=== PATIENT | male | born 1985 | race Caucasian/White ===

== ENCOUNTER 2019-10-21 15:00 | Outpatient (CLI) | payer OTHER, SELFPAY ==
[2019-10-21 16:28] LABS: 25 Hydroxy Vitamin D 16 ng/mL (30-100)
[2019-10-27 19:06] LABS: Vit D 1,25 (Oh)2, Total 54 pg/mL (18-72); Vit D2 1,25 (Oh)2 <8 pg/mL; Vit D3 1,25 (Oh)2 54 pg/mL
== END 2019-10-21 15:01 | disposition home or self-care (01) ==
LOC: LAB 15:04
PROVIDERS: Family Provider Family Medicine; Visit Provider Internal Medicine Critical Care Medicine
DX: D86.9 Sarcoidosis, unspecified (principal)
CPT/HCPCS: 82306; 82652

== ENCOUNTER 2019-11-24 09:51 | Outpatient (CLI) | payer OTHER, SELFPAY ==
--- NOTE | 2019-11-24 13:16 | PFTS_ITS ---
Date of Study:11/24/2019 Date of Dictation: MECHANICS: Forced vital capacity (FVC) is reduced. Forced expiratory volume in one second (FEV1) is reduced. FEV1/FVC is reduced. FLOW VOLUME LOOP: Reduced flow at all lung volumes. LUNG VOLUMES: Total lung capacity (TLC) and residual volume (RV) are not measured. DIFFUSING CAPACITY FOR CARBON MONOXIDE: Not measured. INTERPRETATION: The pulmonary function tests are consistent with severe airflow obstruction. There is possibly a component of restrictive lung disease as well given the reduced forced vital capacity. The gas exchange was not measured. MTDD
== END 2019-11-24 09:52 | disposition home or self-care (01) ==
LOC: RT 09:52
PROVIDERS: Family Provider Family Medicine; PCP Family Medicine; Visit Provider Internal Medicine Critical Care Medicine
DX: D86.9 Sarcoidosis, unspecified (principal)
CPT/HCPCS: 94010

== ENCOUNTER → 2019-11-29 13:49 | Outpatient (BNVA) | payer OTHER, SELFPAY | PROVIDERS: Family Provider Family Medicine; PCP Family Medicine; Referring Provider Family Medicine; Visit Provider Family Medicine | DX: R73.9 Hyperglycemia, unspecified (principal); T38.0X5A Adverse effect of glucocorticoids and synthetic analogues, initial encounter; K29.70 Gastritis, unspecified, without bleeding; K21.9 Gastro-esophageal reflux disease without esophagitis; H57.9 Unspecified disorder of eye and adnexa; D86.0 Sarcoidosis of lung | CPT/HCPCS: 36416; 82962 ==

== ENCOUNTER → 2019-11-30 08:38 | Outpatient (BNVA) | payer OTHER, SELFPAY | PROVIDERS: Family Provider Family Medicine; PCP Family Medicine; Visit Provider Family Medicine | DX: R73.9 Hyperglycemia, unspecified (principal); T38.0X5A Adverse effect of glucocorticoids and synthetic analogues, initial encounter | CPT/HCPCS: 80053; 82150; 83036 ==

== ENCOUNTER 2020-03-31 10:55 | Outpatient (CLI) | payer OTHER, SELFPAY ==
--- NOTE | 2020-03-31 12:37 | PFTS_ITS ---
Date of Study:03/31/20 Date of Dictation: MECHANICS: Forced vital capacity (FVC) is reduced. Forced expiratory volume in one second (FEV1) is reduced. FEV1/FVC is reduced. FLOW VOLUME LOOP: Narrow. LUNG VOLUMES: Not performed DIFFUSING CAPACITY FOR CARBON MONOXIDE: Normal INTERPRETATION: The pulmonary function tests are consistent with severe obstruction. A component of restriction cannot be ruled out without lung volumes. Gas exchange (DLCO) is normal. MTDD
== END 2020-03-31 10:56 | disposition home or self-care (01) ==
LOC: RT 10:55
PROVIDERS: Family Provider Family Medicine; PCP Family Medicine; Visit Provider Internal Medicine Critical Care Medicine
DX: D86.9 Sarcoidosis, unspecified (principal)
CPT/HCPCS: 94010; 94729

== ENCOUNTER → 2020-04-11 08:29 | Outpatient (BNVA) | payer OTHER, SELFPAY | PROVIDERS: Family Provider Family Medicine; PCP Family Medicine; Visit Provider Family Medicine | DX: R73.9 Hyperglycemia, unspecified (principal); T38.0X5A Adverse effect of glucocorticoids and synthetic analogues, initial encounter | CPT/HCPCS: 83036 ==

== ENCOUNTER 2020-05-17 07:57 | Outpatient (CLI) | payer OTHER, SELFPAY ==
[2020-05-17 09:30] LABS: Hepatitis B Core AB, Total Non-Reactive (Nonreactive); Hepatitis B Surface AB 3.5 (0-8.5); Hepatitis B Surface Antigen Non-Reactive (Nonreactive); Hepatitis C Virus Antibody Non-Reactive (Nonreactive)
== END 2020-05-17 07:58 | disposition home or self-care (01) ==
LOC: LAB 07:59
PROVIDERS: PCP Family Medicine; Visit Provider Internal Medicine Critical Care Medicine
DX: D86.0 Sarcoidosis of lung (principal)
CPT/HCPCS: 86705; 86706; 86803; 87340

== ENCOUNTER 2020-06-07 08:29 | Outpatient (CLI) | payer OTHER, SELFPAY ==
[2020-06-07 09:09] LABS: Hematocrit 46.2 % (42.0-52.0); Hemoglobin 14.4 g/dL (11.7-16.6); Mean Corpuscular HGB Conc 31.2 g/dL (30.0-36.0); Mean Corpuscular Hemoglobin 25.7 pg (28.0-34.0); Mean Corpuscular Volume 82.4 fL (80-94); Mean Platelet Volume 8.9 fL (7.4-10.4); Platelet Count 213 10^3/cmm (130-400); Red Blood Count 5.61 10^6/uL (4.1-5.3); Red Cell Distribution Width 14.4 % (12.1-15.1); White Blood Count 5.8 10^3/uL (4.0-10.0)
[2020-06-07 09:44] LABS: Absolute Eosinophils 0.2 10^3/cmm (0.0-0.7); Absolute Neutrophil 4.2 10^3/cmm (1.4-6.5); Absolute Segmented Neutrophil 3.6 10/cmm (1.6-7.1); Band Neutrophils Absolute 0.6 10^3/cmm (0.0-1.2); Eosinophils 4 %; Lymphocytes 20 %; Monocytes Absolute 0.2 10^3/cmm (0.1-0.6); Platelet Estimate Normal (Normal); Segmented Neutrophils 62 %; Total Cells Counted 100 (0-100)
[2020-06-07 09:46] LABS: Alanine Aminotransferase 12 U/L (0-41); Albumin Level 4.3 g/dL (3.5-5.2); Alkaline Phosphatase 109 IU/L (40-130); Anion Gap 15.7 (5-19); Aspartate Amino Transferase 17 U/L (0-40); Blood Urea Nitrogen 9 mg/dL (6-20); Calcium 9.2 mg/dL (8.5-10.5); Carbon Dioxide 25 mmol/L (22-29); Chloride 101 mmol/L (98-107); Globulin 3.2 g/dL (1.3-4.6); Glomerular Filtration Rate 68.5 mL/min (90-130); Glucose 245 mg/dL (65-115); Osmolality Calculated 290 mOsm/kg (285-295); Potassium 3.7 mmol/L (3.5-5.1); Sodium 138 mmol/L (136-145); Total Bilirubin 0.4 mg/dL (0.15-1.2); Total Protein 7.5 g/dL (6.6-8.7)
== END 2020-06-07 08:30 | disposition home or self-care (01) ==
LOC: LAB 08:30
PROVIDERS: PCP Family Medicine; Visit Provider Internal Medicine Critical Care Medicine
DX: D86.0 Sarcoidosis of lung (principal)
CPT/HCPCS: 80053; 85007; 85027

== ENCOUNTER 2020-08-09 15:54 | Outpatient (CLI) | payer OTHER, SELFPAY ==
--- NOTE | 2020-08-09 15:59 | XR_ITS ---
WS: [id number] Left shoulder, 2 views, 08/09/2020 Clinical Data: shoulder pain Comparison: None. Findings: No fractures or dislocations are seen. The AC joint is normal. The adjacent left clavicle, left scapu la and ribs are normal. The soft tissues are unremarkable. XR/XR shoulder LT min 2V* [id number] Impression: Negative left shoulder.
== END 2020-08-09 15:55 | disposition home or self-care (01) ==
PROVIDERS: PCP Family Medicine; Visit Provider Internal Medicine Critical Care Medicine
DX: M25.512 Pain in left shoulder (principal)
CPT/HCPCS: 73030

== ENCOUNTER 2020-08-25 12:56 | Outpatient (CLI) | payer OTHER, SELFPAY ==
[2020-08-25 13:28] LABS: Basophils % 0.4 %; Eosinophils # 0.2 10^3/uL (0.0-0.8); Eosinophils % 4.8 %; Hematocrit 44.4 % (42.0-52.0); Hemoglobin 14.4 g/dL (11.7-16.6); Lymphocytes # 0.8 10^3/uL (0.8-4.8); Lymphocytes % 17.5 %; Mean Corpuscular HGB Conc 32.4 g/dL (30.0-36.0); Mean Corpuscular Hemoglobin 25.4 pg (28.0-34.0); Mean Corpuscular Volume 78.2 fL (80-94); Mean Platelet Volume 8.7 fL (7.4-10.4); Monocytes # 0.4 10^3/uL (0.2-0.9); Monocytes % 8.7 %; Neutrophils % 68.6 %; Nucleated Red Blood Cells % 0 %; Platelet Count 232 10^3/cmm (130-400); Red Blood Count 5.68 10^6/uL (4.1-5.3); Red Cell Distribution Width 13.5 % (12.1-15.1); White Blood Count 4.8 10^3/uL (4.0-10.0)
[2020-08-25 13:55] LABS: Alanine Aminotransferase 14 U/L (0-41); Albumin Level 4.4 g/dL (3.5-5.2); Alkaline Phosphatase 127 IU/L (40-130); Anion Gap 11.8 (5-19); Aspartate Amino Transferase 20 U/L (0-40); Blood Urea Nitrogen 12 mg/dL (6-20); Calcium 9.4 mg/dL (8.5-10.5); Carbon Dioxide 28 mmol/L (22-29); Chloride 102 mmol/L (98-107); Glomerular Filtration Rate 75.7 mL/min (90-130); Glucose 101 mg/dL (65-115); Osmolality Calculated 286 mOsm/kg (285-295); Potassium 3.8 mmol/L (3.5-5.1); Sodium 138 mmol/L (136-145); Total Bilirubin 0.3 mg/dL (0.15-1.2); Total Protein 7.4 g/dL (6.6-8.7)
== END 2020-08-25 12:57 | disposition home or self-care (01) ==
LOC: LAB 12:58
PROVIDERS: PCP Family Medicine; Visit Provider Internal Medicine Critical Care Medicine
DX: D86.0 Sarcoidosis of lung (principal)
CPT/HCPCS: 36415; 80053; 85025

== ENCOUNTER → 2020-09-07 09:04 | Outpatient (BNVA) | payer OTHER, SELFPAY | PROVIDERS: PCP Family Medicine; Visit Provider Internal Medicine Critical Care Medicine | DX: Z20.828 Contact with and (suspected) exposure to other viral communicable diseases (principal); Z01.812 Encounter for preprocedural laboratory examination | CPT/HCPCS: 87635 ==

== ENCOUNTER 2020-09-14 10:40 | Outpatient (CLI) | payer OTHER, SELFPAY ==
--- NOTE | 2020-09-14 11:23 | PFTS_ITS ---
Date of Study:09/14/20 Date of Dictation: MECHANICS: Forced vital capacity (FVC) is reduced. Forced expiratory volume in one second (FEV1) is reduced. FEV1/FVC is reduced. FLOW VOLUME LOOP: Reduced flow with scooping. LUNG VOLUMES: Not measured DIFFUSING CAPACITY FOR CARBON MONOXIDE: Normal INTERPRETATION: The spirometry is consistent with severe obstruction. A component of restriction cannot be ruled out in the absence of lung volume measurements. Gas exchange (DLCO) is normal. MTDD
--- NOTE | 2020-09-14 11:23 | PFTS_ITS ---
Date of Study:09/14/20 Date of Dictation: MECHANICS: Forced vital capacity (FVC) is . Forced expiratory volume in one second (FEV1) is . FEV1/FVC is . FLOW VOLUME LOOP: . LUNG VOLUMES: Total lung capacity (TLC) is . Residual volume (RV) is . DIFFUSING CAPACITY FOR CARBON MONOXIDE: . INTERPRETATION: The pulmonary function tests are . mechanics and lung volumes. Gas exchange (DLCO) is . MTDD
== END 2020-09-14 10:41 | disposition home or self-care (01) ==
PROVIDERS: PCP Family Medicine; Visit Provider Internal Medicine Critical Care Medicine
DX: D86.0 Sarcoidosis of lung (principal)
CPT/HCPCS: 94010; 94729

== ENCOUNTER → 2020-09-18 10:19 | Outpatient (BNVA) | payer OTHER, SELFPAY | PROVIDERS: PCP Family Medicine; Visit Provider Internal Medicine | DX: K21.9 Gastro-esophageal reflux disease without esophagitis (principal); Z01.818 Encounter for other preprocedural examination | CPT/HCPCS: 87635 ==

== ENCOUNTER 2020-09-22 08:33 | Day surgery (SDC) | payer OTHER, SELFPAY ==
[2020-09-21 13:24] VITALS: BMI 33.0
[2020-09-22 08:43] VITALS: BP 144/68; PULSE 91; RESP 22; TEMP 36.9; O2SAT 97
--- NOTE | 2020-09-22 09:14 | ANES.PREANE2 ---
Pre-Anesthetic Assessment Pre-Anesthetic Assessment: Height/Weight: Height 1.83 m Weight 110.677 kg Temp Pulse Resp BP Pulse Ox 98.5 F 91 22 H 144/68 97 09/22/20 08:43 09/22/20 08:43 09/22/20 08:43 09/22/20 08:43 09/22/20 08:43 Preop Diagnosis: e Proposed Procedure: Operation Date: 09/22/20 09:45 Proposed Procedures p EGD 11315 K21.9(Not Applicable) - Lobo Loya MD Last intake: Intake Last Liquid Date 09/21/20 Last Liquid Time 20:00 Last Solid Date 09/21/20 Last Solid Time 20:00 Social: Social History: Tobacco and No alcohol Comment: quit 2014 Exam: Pre-Anes Outpt Exam: alert, oriented x 3, clear to auscultation bilaterally and regular rate & rhythm Airway: Submandibular: WNL Cervical ROM: WNL MP: 3 Dentition: Full (dentures) History/ROS: No significant history except as noted Pulmonary: Pulmonary: AVENDANO Comments: sarcodosis CV/HEM: CV/HEM: None reported : : None reported Hepatic: Hepatic: None reported GI: GI: GERD Metabolic: Metabolic: None reported Musc/skel: Musc/skel: None reported Neuropsych: Neuropsych: None reported Anesthetic Plan: ASA status: 2 Anesthesia: Anesthesia Evaluation and MAC Risk of > 500 ml blood loss (7ml/kg in children): No PFSH Anesthesia PFSH: Medical History Acute hyperventilation syndrome Bilateral pneumonia Drug-induced hyperglycemia Essential (primary) hypertension GERD (gastroesophageal reflux disease) Polyarthralgia Reactive depression (situational) Sarcoidosis of lung Tobacco abuse counseling Tobacco use Surgical History H/O right knee surgery History of lung biopsy Family History Other Cancer Denies family history of Lung disease Social History Smoking and tobacco status: former smoker Quit status (tobacco): has quit using tobacco Year quit tobacco: 2016 - 3PPD x 19 Years Alcohol intake: never Lives independently: Yes Household members: spouse Marital status: Current occupational status: employed History of recent travel: No Current gender identity: Male Data Anesthesia Cardiac Studies: No Data to Display
--- NOTE | 2020-09-22 09:20 | W.PM.OPSUD ---
Surgery/Procedure H&P Update DATE OF PROCEDURE: September 22, 2020 DATE H&P PERFORMED: 09/12/20 PREOP DIAGNOSIS: e PLANNED PROCEDURE: Operation Date: 09/22/20 09:45 Proposed Procedures p EGD 97843 K21.9(Not Applicable) - Lobo Loya MD
[2020-09-22] MEDS: sodium chloride 0.9% 1,000 ML 30 ML IV (09:23)
[2020-09-22 10:11] VITALS: BP 119/91; PULSE 100; RESP 24; TEMP 36.6; O2SAT 98
[2020-09-22 10:16] VITALS: BP 123/88; PULSE 93; RESP 20; TEMP 36.6; O2SAT 98
[2020-09-22 10:34] VITALS: BP 127/93; PULSE 90; RESP 18; O2SAT 97
--- NOTE | 2020-09-22 10:35 | ANE.PACU2 ---
Inpatient post-anesthesia follow up: Airway intact: Yes Vital signs: Temperature 97.8 F Pulse Rate 90 Respiratory Rate 18 Blood Pressure 127/93 Pulse Oximetry 97 Oxygen Delivery Me thod Room Air Oxygen Flow Rate 3 Fraction of Inspir ed Oxygen Hydration adequate: Yes Nausea and vomiting: No Mental status: Baseline
[2020-09-25 09:26] LABS: H. Pylori / CLO Test Negative
== END 2020-09-22 10:42 | disposition home or self-care (01) ==
PROVIDERS: PCP Family Medicine; Visit Provider Internal Medicine
PROC: 0DJ08ZZ Inspection of Upper Intestinal Tract, Via Natural or Artificial Opening Endoscopic (ICD-10-PCS; CPT 43235; principal; 2020-09-22 09:45)
DX: K21.00 Gastro-esophageal reflux disease with esophagitis, without bleeding (principal); K29.70 Gastritis, unspecified, without bleeding; Z79.52 Long term (current) use of systemic steroids; Z87.891 Personal history of nicotine dependence; I10 Essential (primary) hypertension
CPT/HCPCS: 12345; 43239; 87077; J2704; J7030

== ENCOUNTER 2020-09-22 10:46 | Outpatient (CLI) | payer OTHER, SELFPAY ==
[2020-09-22 11:24] LABS: Basophils % 0.9 %; Eosinophils # 0.2 10^3/uL (0.0-0.8); Eosinophils % 4.6 %; Hematocrit 45.1 % (42.0-52.0); Hemoglobin 14.6 g/dL (11.7-16.6); Lymphocytes # 0.6 10^3/uL (0.8-4.8); Lymphocytes % 12.9 %; Mean Corpuscular HGB Conc 32.4 g/dL (30.0-36.0); Mean Corpuscular Hemoglobin 25.7 pg (28.0-34.0); Mean Corpuscular Volume 79.3 fL (80-94); Mean Platelet Volume 8.5 fL (7.4-10.4); Monocytes # 0.4 10^3/uL (0.2-0.9); Monocytes % 8.5 %; Neutrophils # 3.16 10^3/uL (1.8-7.7); Neutrophils % 72.6 %; Nucleated Red Blood Cells % 0 %; Platelet Count 199 10^3/cmm (130-400); Red Blood Count 5.69 10^6/uL (4.1-5.3); Red Cell Distribution Width 13.7 % (12.1-15.1); White Blood Count 4.4 10^3/uL (4.0-10.0)
== END 2020-09-22 10:47 | disposition home or self-care (01) ==
LOC: LAB 10:47
PROVIDERS: PCP Family Medicine; Visit Provider Internal Medicine Critical Care Medicine
DX: D86.0 Sarcoidosis of lung (principal)
CPT/HCPCS: 36415; 85025

== ENCOUNTER → 2020-11-30 09:47 | Outpatient (BNVA) | payer OTHER, SELFPAY | PROVIDERS: PCP Family Medicine; Visit Provider Internal Medicine Critical Care Medicine | DX: D86.0 Sarcoidosis of lung (principal) | CPT/HCPCS: 87635 ==

== ENCOUNTER 2020-12-05 09:43 | Outpatient (CLI) | payer OTHER, SELFPAY ==
--- NOTE | 2020-12-05 14:01 | PFTS_ITS ---
Date of Study:12/05/20 Date of Dictation: 12/08/2020 MECHANICS: Forced vital capacity (FVC) is reduced 65%. Forced expiratory volume in one second (FEV1) is moderately reduced 51%. FEV1/FVC is reduced. FLOW VOLUME LOOP: Sloping of expiratory limb suggestive of airway obstruction. LUNG VOLUMES: Not measured DIFFUSING CAPACITY FOR CARBON MONOXIDE: Normal 89% . INTERPRETATION: The spirometry suggestive of moderate obstructive ventilatory defect. There is no significant response to bronchodilators. Normal diffusion capacity. MTDD
== END 2020-12-05 09:44 | disposition home or self-care (01) ==
LOC: RT 09:44
PROVIDERS: PCP Family Medicine; Visit Provider Internal Medicine Critical Care Medicine
DX: D86.0 Sarcoidosis of lung (principal)
CPT/HCPCS: 94060; 94729; J7611

== ENCOUNTER 2021-01-03 11:52 | Outpatient (CLI) | payer OTHER, SELFPAY ==
[2021-01-03 12:47] LABS: Basophils % 0.9 %; Eosinophils # 0.1 10^3/uL (0.0-0.8); Eosinophils % 2.7 %; Hematocrit 46.4 % (42.0-52.0); Hemoglobin 15.2 g/dL (11.7-16.6); Lymphocytes # 0.8 10^3/uL (0.8-4.8); Lymphocytes % 17.7 %; Mean Corpuscular HGB Conc 32.8 g/dL (30.0-36.0); Mean Corpuscular Hemoglobin 26.3 pg (28.0-34.0); Mean Corpuscular Volume 80.4 fL (80-94); Mean Platelet Volume 8.9 fL (7.4-10.4); Monocytes # 0.4 10^3/uL (0.2-0.9); Monocytes % 7.7 %; Neutrophils # 3.19 10^3/uL (1.8-7.7); Neutrophils % 70.6 %; Nucleated Red Blood Cells % 0 %; Platelet Count 217 10^3/cmm (130-400); Red Blood Count 5.77 10^6/uL (4.1-5.3); White Blood Count 4.5 10^3/uL (4.0-10.0)
[2021-01-03 13:12] LABS: Alanine Aminotransferase 9 U/L (0-41); Albumin Level 4.4 g/dL (3.5-5.2); Alkaline Phosphatase 113 IU/L (40-130); Anion Gap 13.7 (5-19); Aspartate Amino Transferase 17 U/L (0-40); Blood Urea Nitrogen 9 mg/dL (6-20); Calcium 9.1 mg/dL (8.5-10.5); Carbon Dioxide 28 mmol/L (22-29); Chloride 102 mmol/L (98-107); Globulin 3.4 g/dL (1.3-4.6); Glucose 122 mg/dL (65-115); Osmolality Calculated 290 mOsm/kg (285-295); Potassium 3.7 mmol/L (3.5-5.1); Sodium 140 mmol/L (136-145); Total Bilirubin 0.3 mg/dL (0.15-1.2); Total Protein 7.8 g/dL (6.6-8.7)
== END 2021-01-03 11:53 | disposition home or self-care (01) ==
LOC: LAB 11:53
PROVIDERS: PCP Family Medicine; Visit Provider Internal Medicine Critical Care Medicine
DX: D86.0 Sarcoidosis of lung (principal)
CPT/HCPCS: 80053; 85025

== ENCOUNTER 2021-02-21 10:12 | Emergency (ER) | payer OTHER, SELFPAY ==
[2021-02-21 10:14] VITALS: BP 142/104; PULSE 103; RESP 18; TEMP 36.8; O2SAT 97; BMI 31.1
--- NOTE | 2021-02-21 10:18 | XR_ITS ---
WS: [id number] Left femur and thigh, AP and lateral views, 02/21/2021 Clinical Data: trauma Comparison: None. Findings: No fractures or dislocations are seen. The soft tissues are normal. The visualized knee shows no abno rmalities. The left hip shows no abnormalities. XR/XR femur LT min 2V* [id number] Impression: Negative left femur and thigh.
--- NOTE | 2021-02-21 10:18 | CT_ITS ---
WS: [id number] CT ABDOMEN PELVIS TECHNIQUE: Contrast-enhanced CT of the abdomen and pelvis with coronal and sagittal reformatted image s. CLINICAL INFORMATION: Unspecified abdominal wilber COMPARISON: None. DLP: 1605.[address] scans at [facility] use at least one of these dose optimization techniques: automat ed exposure control; mA and/or kV adjustment per patient size (includes targeted exams where dose is matched to clinical indication); or iterative reconstruction. FINDINGS: Mild diffuse fatty infiltration the liver. Normal spleen. Normal GE junction. Normal caliber abdomina l aorta. Normal pancreas. Normal renal parenchymal enhancement. No hydronephrosis. No free fluid in t he abdomen or pelvis. No abdominal or pelvic lymphadenopathy. Chronic Opacities in the left lower lob e unchanged since the prior CTA February 2018. Normal lumbar spine. CT/CT abdomen pelvis w con* [id number] IMPRESSION: No acute findings in the abdomen or pelvis.
--- NOTE | 2021-02-21 10:24 | CT_ITS ---
WS: [id number] CT THORACIC SPINE TECHNIQUE: Noncontrast CT of the thoracic spine with coronal and sagittal reformatted images. CLINICAL INFORMATION: trauma COMPARISON: None. DLP: 2245.[address] scans at [facility] use at least one of these dose optimization techniques: automat ed exposure control; mA and/or kV adjustment per patient size (includes targeted exams where dose is matched to clinical indication); or iterative reconstruction. FINDINGS: Mild thoracic curve. Mild thoracic kyphosis. A few Schmorl's nodes in the mid thoracic spine. No acut e appearing compression fractures. No high-grade central canal stenosis. Adrenal glands are normal. Small esophageal hiatal hernia. Chronic lung opacities similar to 2018. CT/CT thoracic spin wo con* [id number] IMPRESSION: 1. Mild thoracic kyphosis. Mild thoracic curve. 2. No acute compression fractures. 3. A few Schmorl's nodes in the mid thoracic spine. 4. No significant central canal stenosis.
[2021-02-21 10:35] LABS: Basophils % 0.6 %; Eosinophils # 0.1 10^3/uL (0.0-0.8); Eosinophils % 1.2 %; Hematocrit 46.6 % (42.0-52.0); Hemoglobin 15.5 g/dL (11.7-16.6); Lymphocytes # 1.1 10^3/uL (0.8-4.8); Lymphocytes % 16.3 %; Mean Corpuscular HGB Conc 33.3 g/dL (30.0-36.0); Mean Corpuscular Hemoglobin 26.5 pg (28.0-34.0); Mean Corpuscular Volume 79.8 fL (80-94); Monocytes # 0.6 10^3/uL (0.2-0.9); Monocytes % 8.2 %; Neutrophils # 4.91 10^3/uL (1.8-7.7); Neutrophils % 73.6 %; Nucleated Red Blood Cells % 0 %; Platelet Count 246 10^3/cmm (130-400); Red Blood Count 5.84 10^6/uL (4.1-5.3); Red Cell Distribution Width 13.8 % (12.1-15.1); White Blood Count 6.7 10^3/uL (4.0-10.0)
--- NOTE | 2021-02-21 10:42 | ED_ITS ---
HPI - Fall General: Chief Complaint: Fall Stated Complaint: FALL/ SWELLING & DEFORMITY TO LEG Time Seen by Provider: 02/21/21 10:15 History of Present Illness: HPI Narrative: 35-year-old male brought in by EMS. Patient brought in following a fall. Patient was walking when he fell to and approximate 5 foot hole. Patient reports that he did not fall the way down but that his back bent backwards it caught him. He complains of pain in his thoracic midline spine, left flank, left posterior hip and left thigh. Patient has some swelling to his left thigh with full range of motion is painful. Patient denies any numbness tingling, bowel or bladder issues. Patient some mild swelling on his mid back. Patient did not want any pain medication while being brought in by EMS. He denies any abdominal pain. Associated symptoms-after fall: Denies abdominal pain, chest pain or headache(s) Review of Systems Const: Denies: fever(s) or chills Eyes: Denies: change in vision ENMT: Denies: throat pain Card: Denies: chest pain or palpitations Resp: Denies: dyspnea or wheezing GI: Denies: abdominal pain, nausea or vomiting : Reports: flank pain Musc: Reports: back pain (Midline thoracic, lumbar, left lumbar region and left posterior pelvis/hip.) and other (Mild swelling left thigh); Denies: deformity Neuro: Denies: headache(s) PFSH ED PFSH: Medical History Acute hyperventilation syndrome Bilateral pneumonia Drug-induced hyperglycemia Essential (primary) hypertension GERD (gastroesophageal reflux disease) Polyarthralgia Reactive depression (situational) Sarcoidosis of lung Tobacco abuse counseling Tobacco use Surgical History H/O right knee surgery History of lung biopsy Family History Other Cancer Denies family history of Lung disease Social History Smoking and tobacco status: former smoker Quit status (tobacco): has quit using tobacco Year quit tobacco: 2016 - 3PPD x 19 Years Smoking risk assessment/counseling performed?: No Alcohol intake: never Desire information about alcohol rehabilitation?: No Counseling given: No Desire information about substance/drug rehabilitation?: No Counseling given: No Lives independently: Yes Household members: spouse Marital status: Current occupational status: employed History of recent travel: No Current gender identity: Male Physical Exam Const: COMMON NORMALS: average body habitus GENERAL APPEARANCE: well kempt HENMT: COMMON NORMALS: normocephalic and atraumatic HEAD & SCALP: normocephalic and atraumatic Neck/C-Spine: COMMON NORMALS: full ROM and supple Psych: APPEARANCE: Yes well kempt Course Vital Signs: Vital signs: Vital Signs Temperature 98.2 F 02/21/21 10:14 Pulse Rate 84 02/21/21 11:55 Respiratory Rate 14 02/21/21 11:55 Blood Pressure 128/98 02/21/21 11:55 Pulse Oximetry 98 02/21/21 11:55 MDM - Fall MDM Narrative: Medical decision making narrative: Patient with no acute findings on x-ray, CT thoracic her CT abdomen pelvis. Patient will likely lumbar and thoracic contusion. Patient reports only a little bit of pain when he does move around. Patient ready to be discharged. He will use Tylenol ibuprofen and topical lidocaine for pain. Lab Data: Labs: Lab Results 02/21/21 02/21/21 02/21/21 Range/Units 10:27 10:27 11:36 WBC 6.7 (4.0-10.0) 10^3/ uL RBC 5.84 H (4.1-5.3) 10^6/u L Hgb 15.5 (11.7-16.6) g/dL Hct 46.6 (42.0-52.0) % MCV 79.8 L (80-94) fL MCH 26.5 L (28.0-34.0) pg MCHC 33.3 (30.0-36.0) g/dL RDW 13.8 (12.1-15.1) % Plt Count 246 (130-400) 10^3/c mm MPV 9.0 (7.4-10.4) fL Neut % (Auto) 73.6 % Lymph % (Auto) 16.3 % [place] % (Auto) 8.2 % Eos % (Auto) 1.2 % Baso % (Auto) 0.6 % Neut # (Auto) 4.91 (1.8-7.7) 10^3/u L Lymph # (Auto) 1.1 (0.8-4.8) 10^3/u L [place] # (Auto) 0.6 (0.2-0.9) 10^3/u L Eos # (Auto) 0.1 (0.0-0.8) 10^3/u L Baso # (Auto) 0.0 (0.0-0.1) 10^3/u L Nucleated RBC % (a uto) 0 % Nucleated RBCs # 0.0 /100WBC Sodium 137 (136-145) mmol/L Potassium 3.9 (3.5-5.1) mmol/L Chloride 99 (98-107) mmol/L Carbon Dioxide 24 (22-29) mmol/L Anion Gap 17.9 (5-19) BUN 10 (6-20) mg/dL Creatinine 1.0 (0.7-1.2) mg/dL GFR Calculation 84.1 L (90-130) mL/min Glucose 131 H (65-115) mg/dL Calculated Osmolal ity 285 (285-295) mOsm/k g Calcium 8.5 (8.5-10.5) mg/dL Total Bilirubin 0.3 (0.15-1.2) mg/dL AST 19 (0-40) U/L ALT 11 (0-41) U/L Alkaline Phosphata se 109 (40-130) IU/L Total Protein 7.7 (6.6-8.7) g/dL Albumin 4.4 (3.5-5.2) g/dL Globulin 3.3 (1.3-4.6) g/dL Urine Color Straw (Yellow) Urine Appearance Clear (CLEAR) Urine pH 8 H (5-7) Ur Specific Gravit y 1.010 (1.005-1.030) Urine Protein Neg (Negative) Urine Glucose (UA) Norm (Normal) Urine Ketones Negative (Negative) Urine Blood Neg (Negative) Urine Nitrate Negative (Negative) Urine Bilirubin Neg (Negative) Prot Sulfosalicyli c Acd Negative (Negative) Urine Urobilinogen Norm (Negative) mg/dL Ur Leukocyte Lacie ase Negative (Negative) Imaging Data^: Xray Ortho: Attestation: I personally reviewed and interpreted this imaging study as follows: My impression: No acute findings Radiologist's impression: Left femur and thigh, AP and lateral views, 02/21/2021 Clinical Data: trauma Comparison: None. Findings: No fractures or dislocations are seen. The soft tissues are normal. The visualized knee shows no abnormalities. The left hip shows no abnormalities. XR/XR femur LT min 2V* [id number] Impression: Negative left femur and thigh. CT Abd/Pel: Attestation: I personally reviewed and interpreted this imaging study as follows: Radiologist's impression: Mild diffuse fatty infiltration the liver. Normal spleen. Normal GE junction. Normal caliber abdominal aorta. Normal pancreas. Normal renal parenchymal enhancement. No hydronephrosis. No free fluid in the abdomen or pelvis. No abdominal or pelvic lymphadenopathy. Chronic Opacities in the left lower lobe unchanged since the prior CTA February 2018. Normal lumbar spine. CT/CT abdomen pelvis w con* [id number] IMPRESSION: No acute findings in the abdomen or pelvis Other CT: Attestation: I personally reviewed and interpreted this imaging study as follows : Radiologist's impression: IMPRESSION: 1. Mild thoracic kyphosis. Mild thoracic curve. 2. No acute compression fractures. 3. A few Schmorl's nodes in the mid thoracic spine. 4. No significant central canal stenosis. Discharge Plan Discharge Patient Disposition: Home Clinical Impression: Contusion Qualifiers: Encounter type: initial encounter Contusion area: lower back Qualified Code(s): S30.0XXA - Contusion of lower back and pelvis, initial encounter Fall Qualifiers: Encounter type: initial encounter Qualified Code(s): W19.XXXA - Unspecified fall, initial encounter Acute lumbar myofascial strain Qualifiers: Encounter type: initial encounter Qualified Code(s): S39.012A - Strain of muscle, fascia and tendon of lower back, initial encounter Contusion of left leg Qualifiers: Encounter type: initial encounter Qualified Code(s): S80.12XA - Contusion of left lower leg, initial encounter Condition: Stable Prescriptions: No Action tacrolimus 0.1 % ointment 1 applic topical BID Qty: 60 RF: 1 diclofenac sodium [Voltaren] 1 % gel 2 gm TOPICAL BID RF: 0 albuterol sulfate [Ventolin HFA] 90 mcg/actuation HFA aerosol inhaler 2 puff INHALATION Q4H PRN (Reason: Shortness Of Breath) RF: 0 prednisone 5 mg tablet 5 mg PO DAILY 60 Days Qty: 60 RF: 3 clobetasol 0.05 % ointment 1 applic topical BID 14 Days Qty: 60 RF: 1 hydrocortisone 2.5 % ointment 1 applic topical BID Qty: 28.35 RF: 2 folic acid 1 mg tablet See Rx Instructions .ROUTE .COMPLEX Qty: 30 RF: 2 Protonix 40 mg tablet,delayed release (DR/EC) 40 mg PO BID Qty: 180 RF: 3 methotrexate sodium 2.5 mg tablet See Rx Instructions .ROUTE .COMPLEX Qty: 36 RF: 0 Discharge Orders: Discharge ED (Routine); Ordered 02/21/21 Ordered By: Jj Ornelas Referrals: Reggie Webb MD [Primary Care Provider] - Discharge Diet: Usual diet Discharge Activity: Increase activity as tolerated Patient Instructions: Low Back Strain (ED), Contusion in Adults (ED), Opioid Safety Activity Restrictions/Additional Instructions: Tylenol or ibuprofen as needed for pain 4% topical lidocaine with menthol as needed for pain Ice to affected area Follow-up with your primary care provider as needed Coding Level of Care Code ED Horse Race Timer for Chg Fwd Exam Expanded Problem Focused
[2021-02-21] MEDS: iohexol 300 mg/mL 100 mL Btl IV (10:51)
[2021-02-21 10:55] LABS: Alanine Aminotransferase 11 U/L (0-41); Albumin Level 4.4 g/dL (3.5-5.2); Alkaline Phosphatase 109 IU/L (40-130); Anion Gap 17.9 (5-19); Aspartate Amino Transferase 19 U/L (0-40); Blood Urea Nitrogen 10 mg/dL (6-20); Calcium 8.5 mg/dL (8.5-10.5); Carbon Dioxide 24 mmol/L (22-29); Chloride 99 mmol/L (98-107); Globulin 3.3 g/dL (1.3-4.6); Glomerular Filtration Rate 84.1 mL/min (90-130); Glucose 131 mg/dL (65-115); Osmolality Calculated 285 mOsm/kg (285-295); Potassium 3.9 mmol/L (3.5-5.1); Sodium 137 mmol/L (136-145); Total Bilirubin 0.3 mg/dL (0.15-1.2); Total Protein 7.7 g/dL (6.6-8.7)
[2021-02-21 11:42] LABS: Add Urine Microscopic? NO; Charge for UA Resulting for Rev
[2021-02-21 11:47] LABS: Bilirubin Urine Neg (Negative); Blood Urine Neg (Negative); Glucose Urine UA Norm (Normal); Ketones Urine Negative (Negative); Leukocyte Esterase Urine Negative (Negative); Nitrate Urine Negative (Negative); Protein Urine Neg (Negative); Sulfosalicylic Acid Urine Negative (Negative); Urine Appearance Clear (CLEAR); Urine Color Straw (Yellow); Urobilinogen Urine Norm (Negative); pH Urine 8 (5-7)
[2021-02-21 11:55] VITALS: BP 128/98; PULSE 84; RESP 14; O2SAT 98
== END 2021-02-21 11:56 | disposition home or self-care (01) ==
PROVIDERS: Emergency Provider Student in an Organized Health Care Education/Training Program; PCP Family Medicine
DX: S30.0XXA Contusion of lower back and pelvis, initial encounter (principal); S39.012A Strain of muscle, fascia and tendon of lower back, initial encounter; S80.12XA Contusion of left lower leg, initial encounter; W19.XXXA Unspecified fall, initial encounter; I10 Essential (primary) hypertension; Z87.891 Personal history of nicotine dependence
CPT/HCPCS: 72128; 73552; 74177; 80053; 81003; 85025; 99283; Q9967

== ENCOUNTER → 2021-06-18 10:39 | Outpatient (BNVA) | payer OTHER, SELFPAY | PROVIDERS: PCP Family Medicine; Visit Provider Internal Medicine Critical Care Medicine | DX: D86.0 Sarcoidosis of lung (principal); Z20.822 Contact with and (suspected) exposure to COVID-19 | CPT/HCPCS: 87635 ==

== ENCOUNTER 2021-06-21 09:59 | Outpatient (CLI) | payer OTHER, SELFPAY ==
--- NOTE | 2021-06-21 10:35 | PFTS_ITS ---
Date of Study:06/21/21 Date of Dictation: 06/22/2021 MECHANICS: Forced vital capacity (FVC) is reduced. Forced expiratory volume in one second (FEV1) is severely reduced. FEV1/FVC is reduced. There is no postbronchodilator study FLOW VOLUME LOOP: Slanting of expiratory limb suggestive of airway obstruction. LUNG VOLUMES: Not measured DIFFUSING CAPACITY FOR CARBON MONOXIDE: Normal . INTERPRETATION: The prebronchodilator spirometry is consistent with severe air flow obstruction. Lung volumes not measured. Gas transfer is kaushik. Correlate clinically. MTDD
== END 2021-06-21 10:00 | disposition home or self-care (01) ==
LOC: RT 10:00
PROVIDERS: PCP Family Medicine; Visit Provider Internal Medicine Critical Care Medicine
DX: D86.0 Sarcoidosis of lung (principal)
CPT/HCPCS: 94010; 94729

== ENCOUNTER → 2021-10-10 10:22 | Outpatient (BNVA) | payer OTHER, SELFPAY | PROVIDERS: PCP Family Medicine; Visit Provider Family Medicine | DX: R73.9 Hyperglycemia, unspecified (principal); T38.0X5A Adverse effect of glucocorticoids and synthetic analogues, initial encounter | CPT/HCPCS: 83036 ==

== ENCOUNTER → 2022-02-20 10:09 | Outpatient (BNVA) | payer OTHER, SELFPAY | PROVIDERS: PCP Family Medicine; Visit Provider Internal Medicine Critical Care Medicine | DX: D86.0 Sarcoidosis of lung (principal); R73.9 Hyperglycemia, unspecified; T38.0X5A Adverse effect of glucocorticoids and synthetic analogues, initial encounter; Z87.891 Personal history of nicotine dependence | CPT/HCPCS: 71046; 80048; 85025 ==

== ENCOUNTER 2022-02-26 07:02 | Outpatient (CLI) | payer OTHER, SELFPAY ==
--- NOTE | 2022-02-26 11:02 | PFTS_ITS ---
Date of Study:02/26/22 Date of Dictation: MECHANICS: Forced vital capacity (FVC) is reduced. Forced expiratory volume in one second (FEV1) is reduced. FEV1/FVC is reduced. FLOW VOLUME LOOP: Reduced flow at all lung volumes with mild scooping LUNG VOLUMES: Total lung capacity (TLC) is reduced. Residual volume (RV) is normal. DIFFUSING CAPACITY FOR CARBON MONOXIDE: Normal. INTERPRETATION: The postbronchodilator spirometry is consistent with moderate obstruction. There is a significant postbronchodilator response. Lung volumes are consistent with mild restrictive lung disease. Gas exchange (DLCO) is normal. MTDD
== END 2022-02-26 07:03 | disposition home or self-care (01) ==
LOC: RT 07:03
PROVIDERS: PCP Family Medicine; Visit Provider Internal Medicine Critical Care Medicine
DX: D86.0 Sarcoidosis of lung (principal)
CPT/HCPCS: 94060; 94726; 94729; J7614

== ENCOUNTER → 2022-04-23 14:12 | Outpatient (BNVA) | payer OTHER, SELFPAY | PROVIDERS: PCP Family Medicine; Visit Provider Internal Medicine | DX: E78.2 Mixed hyperlipidemia (principal); E11.65 Type 2 diabetes mellitus with hyperglycemia | CPT/HCPCS: 80061; 83036 ==

== ENCOUNTER 2022-06-04 15:33 | Emergency (ER) | payer OTHER, SELFPAY ==
[2022-06-04 15:35] VITALS: BP 141/90; PULSE 85; RESP 20; TEMP 36.4; O2SAT 100; BMI 29.4
--- NOTE | 2022-06-04 15:45 | XR_ITS ---
WS: [id number] Exam: XR chest 1V portable [id number] Date/Time of Exam: 06/04/2022 3:45 PM Reason For Exam: chest pain Comparison 02/20/2022. Patchy fibrotic appearing opacities are noted throughout both lungs and demonstrate no change since p rior study. Heart size is normal. Prominent right hilum unchanged. No pneumothorax or pleural effusio n. No acute pneumonic infiltrates are suspected. XR/XR chest 1V portable [id number] IMPRESSION: 1. Extensive chronic pulmonary parenchymal changes in both lungs. 2. No acute pulmonary consolidation. 3. Prominent right pulmonary hilum unchanged.
--- NOTE | 2022-06-04 15:58 | ECG_ITS ---
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 Measurements Intervals [place] Rate: 100 P: 54 [place]: 152 QRS: 29 QRSD: 85 T: 45 QT: 315 QTc: 407 Interpretive Statements SINUS TACHYCARDIA Compared to ECG 07/21/2018 11:31:06 Sinus rhythm no longer present Electronically Signed On 06-04-2022 16:25:16 CDT by Jose Rocha M.D. [email or web address] [email or web address] sm[facility] [email or web address] [id number]
[2022-06-04 16:24] LABS: Basophils % 0.5 %; Eosinophils # 0.1 10^3/uL (0.0-0.8); Eosinophils % 1.7 %; Hematocrit 48.7 % (42.0-52.0); Hemoglobin 16.1 g/dL (11.7-16.6); Lymphocytes # 0.5 10^3/uL (0.8-4.8); Lymphocytes % 8.5 %; Mean Corpuscular HGB Conc 33.1 g/dL (30.0-36.0); Mean Corpuscular Hemoglobin 25.6 pg (28.0-34.0); Mean Corpuscular Volume 77.4 fl (80-94); Mean Platelet Volume 8.7 fL (7.4-10.4); Monocytes # 0.4 10^3/uL (0.2-0.9); Monocytes % 6.8 %; Neutrophils # 4.73 10^3/uL (1.8-7.7); Neutrophils % 82.2 %; Nucleated Red Blood Cells % 0 %; Platelet Count 216 10^3/cmm (130-400); Red Blood Count 6.29 10^6/uL (4.1-5.3); Red Cell Distribution Width 13.2 % (12.1-15.1); White Blood Count 5.8 10^3/uL (4.0-10.0)
[2022-06-04 16:57] LABS: Troponin(5th) Baseline 7 ng/L (0-15)
[2022-06-04 17:01] LABS: Alanine Aminotransferase 11 U/L (0-41); Albumin Level 4.3 g/dL (3.5-5.2); Alkaline Phosphatase 125 U/L (40-130); Aspartate Amino Transferase 17 U/L (0-40); Blood Urea Nitrogen 9 mg/dL (6-20); Carbon Dioxide 20 mmol/L (22-29); Chloride 103 mmol/L (98-107); Globulin 3.2 g/dL (1.3-4.6); Glomerular Filtration Rate 94.4 mL/min (90-130); Glucose 148 mg/dL (65-115); Osmolality Calculated 285 mOsm/kg (285-295); Sodium 137 mmol/L (136-145); Total Bilirubin 0.4 mg/dL (0.15-1.2); Total Protein 7.5 g/dL (6.6-8.7)
[2022-06-04 17:02] LABS: Anion Gap 17.7 (5-19); Potassium 3.7 mmol/L (3.5-5.1)
--- NOTE | 2022-06-04 17:11 | W.ED.CHESTPA ---
HPI - Chest Pain General: Chief Complaint: Chest Pain Stated Complaint: chest pain Time Seen by Provider: 06/04/22 17:10 Source: patient Mode of arrival: ambulatory Limitations: no limitations History of Present Illness: 36-year-old male presents emergency room complaining of chest pain. States it began when he was laying on the couch she did not feel well his blood sugar went down he checked it was in his 60s he ate some candy went back up when he started feeling better. He does not have any pain or discomfort now. On arrival here he is hyperventilating somnolent. No radiation of pain to the neck or the arms no known history of coronary artery disease. MD complaint: chest pain Pertinent past history: other (Sarcoidosis of the lung) Onset (ago): minute(s) Timing of current episode: episodic Onset: during rest Pain location: substernal Pain radiation: none Severity: mild Quality: sharp Relieving factors: other (Eating) Exacerbating factors: nothing Associated symptoms: Reports sense of impending doom; Deny abdominal pain, diaphoresis, dyspnea, fever(s), leg edema, nausea, palpitations, syncope or vomiting Treatment prior to arrival: none Review of Systems Const: Denies: fever(s), chills, fatigue, malaise or diaphoresis ENMT: Denies: throat pain, ear or mastoid pain, nasal discharge or nasal congestion Card: Denies: chest pain, palpitations or syncope Resp: Denies: dyspnea, productive cough or non-productive cough GI: Denies: abdominal pain, nausea or vomiting : Denies: flank pain, difficulty urinating, dysuria, urinary frequency or urinary urgency Skin/Breast: Denies: rash or pruritus PFSH ED PFSH: Medical History Acute hyperventilation syndrome Bilateral pneumonia Drug-induced hyperglycemia Essential (primary) hypertension GERD (gastroesophageal reflux disease) Polyarthralgia Reactive depression (situational) Sarcoidosis of lung Tobacco abuse counseling Tobacco use Surgical History H/O right knee surgery History of lung biopsy Family History Other Cancer Denies family history of Lung disease Social History Smoking and tobacco status: current every day smoker Quit status (tobacco): has quit using tobacco Year quit tobacco: 2016 - 3PPD x 19 Years Smoking risk assessment/counseling performed?: No Alcohol intake: never Desire information about alcohol rehabilitation?: No Counseling given: No Desire information about substance/drug rehabilitation?: No Counseling given: No Lives independently: Yes Household members: spouse Marital status: Current occupational status: employed History of recent travel: No Current gender identity: Male Course Vital Signs: Vital signs: Vital Signs Temperature 97.6 F 06/04/22 15:35 Pulse Rate 87 06/04/22 18:19 Respiratory Rate 17 06/04/22 18:19 Blood Pressure 141/90 06/04/22 15:35 Pulse Oximetry 100 06/04/22 18:19 Oxygen Delivery Me thod 06/04/22 15:35 MDM - Chest Pain Medical Decision Making Symptoms resolved. Labs imaging reviewed as found on the chart patient does have sarcoidosis of the lung otherwise doing well at this point. increase his prednisone and add doxycycline discharge. Follow-up with pulmonology in the next 2 to 3 days. Medical Records I reviewed the patient's medical records. Lab Data I reviewed the patient's lab results. : 06/04/22 16:16 06/04/22 16:16 Radiology Impressions Chest X-Ray 06/04/22 15:45 IMPRESSION: 1. Extensive chronic pulmonary parenchymal changes in both lungs. 2. No acute pulmonary consolidation. 3. Prominent right pulmonary hilum unchanged. Laboratory Results WBC 5.8 10^3/uL (4.0-10.0) 06/04/22 16:16 RBC 6.29 10^6/uL (4.1-5.3) H 06/04/22 16:16 Hgb 16.1 g/dL (11.7-16.6) 06/04/22 16:16 Hct 48.7 % (42.0-52.0) 06/04/22 16:16 MCV 77.4 fl (80-94) L 06/04/22 16:16 MCH 25.6 pg (28.0-34.0) L 06/04/22 16:16 MCHC 33.1 g/dL (30.0-36.0) 06/04/22 16:16 RDW 13.2 % (12.1-15.1) 06/04/22 16:16 Plt Count 216 10^3/cmm (130-400) 06/04/22 16:16 MPV 8.7 fL (7.4-10.4) 06/04/22 16:16 Neut % (Auto) 82.2 % 06/04/22 16:16 Lymph % (Auto) 8.5 % 06/04/22 16:16 [place] % (Auto) 6.8 % 06/04/22 16:16 Eos % (Auto) 1.7 % 06/04/22 16:16 Baso % (Auto) 0.5 % 06/04/22 16:16 Neut # (Auto) 4.73 10^3/uL (1.8-7.7) 06/04/22 16:16 Lymph # (Auto) 0.5 10^3/uL (0.8-4.8) L 06/04/22 16:16 [place] # (Auto) 0.4 10^3/uL (0.2-0.9) 06/04/22 16:16 Eos # (Auto) 0.1 10^3/uL (0.0-0.8) 06/04/22 16:16 Baso # (Auto) 0.0 10^3/uL (0.0-0.1) 06/04/22 16:16 Nucleated RBC % (auto) 0 % 06/04/22 16:16 Nucleated RBCs # 0.0 /100WBC 06/04/22 16:16 Sodium 137 mmol/L (136-145) 06/04/22 16:16 Potassium 3.7 mmol/L (3.5-5.1) 06/04/22 16:16 Chloride 103 mmol/L (98-107) 06/04/22 16:16 Carbon Dioxide 20 mmol/L (22-29) L 06/04/22 16:16 Anion Gap 17.7 (5-19) 06/04/22 16:16 BUN 9 mg/dL (6-20) 06/04/22 16:16 Creatinine 0.9 mg/dL (0.7-1.2) 06/04/22 16:16 GFR Calculation 94.4 mL/min (90-130) 06/04/22 16:16 Glucose 148 mg/dL (65-115) H 06/04/22 16:16 Calculated Osmolality 285 mOsm/kg (285-295) 06/04/22 16:16 Calcium 10.0 mg/dL (8.5-10.5) 06/04/22 16:16 Total Bilirubin 0.4 mg/dL (0.15-1.2) 06/04/22 16:16 AST 17 U/L (0-40) 06/04/22 16:16 ALT 11 U/L (0-41) 06/04/22 16:16 Alkaline Phosphatase 125 U/L (40-130) 06/04/22 16:16 Troponin T Baseline 7 ng/L (0-15) 06/04/22 16:16 Total Protein 7.5 g/dL (6.6-8.7) 06/04/22 16:16 Albumin 4.3 g/dL (3.5-5.2) 06/04/22 16:16 Globulin 3.2 g/dL (1.3-4.6) 06/04/22 16:16 Discharge Plan Discharge Patient Disposition: Home Clinical Impression: Sarcoidosis of lung Condition: Stable Prescriptions: New prednisone 10 mg tablet 10 mg PO DAILY Qty: 7 0RF Held doxycycline hyclate 100 mg capsule 100 mg PO BID Qty: 60 3RF Hold Instructions: Resume on 06/12/22. Rx Instructions: Take with a full glass of water. Will cause sun sensitivity. Take probiotic supplement. No Action Breo Ellipta 100-25 mcg/dose blister with device 1 inh inhalation DAILY 30 Days Qty: 60 3RF metformin 500 mg tablet extended release 24 hr 1,000 mg PO BID Qty: 360 3RF albuterol sulfate [Ventolin HFA] 90 mcg/actuation HFA aerosol inhaler 2 puff INHALATION Q4H PRN (Reason: Shortness Of Breath) Qty: 8.5 3RF atorvastatin 40 mg tablet 40 mg PO DAILY Qty: 90 3RF Protonix 40 mg tablet,delayed release (DR/EC) 40 mg PO BID Qty: 180 3RF prednisone 5 mg tablet 5 mg PO DAILY methotrexate sodium 2.5 mg tablet 7.5 mg PO Q7D Rx Instructions: on friday folic acid 1 mg tablet 1 mg PO DAILY Ozempic 1 mg/dose (2 mg/1.5 mL) pen injector 1 mg SUBCUT Q7D Rx Instructions: Inject 1 mg subcut once a week. on friday Discharge Orders: Discharge ED (Routine); Ordered 06/04/22 Ordered By: Aki Hernandez Referrals: Reggie Webb MD [Primary Care Provider] - Discharge Diet: Usual diet Discharge Activity: Resume usual activity Patient Instructions: Opioid Safety Activity Restrictions/Additional Instructions: Follow-up with Dr. Álvarez in the next 7 to 10 days. Hold doxycycline and instead take Levaquin daily for 7 days. Increase your prednisone to 10 mg daily for [address] Álvarez will make further adjustments from that point. Coding Level of Care Code ED Vac Press Operator for Issac Gaines
[2022-06-04 18:19] VITALS: PULSE 87; RESP 17; O2SAT 100
== END 2022-06-04 18:21 | disposition home or self-care (01) ==
PROVIDERS: Emergency Provider Family Medicine; PCP Family Medicine
DX: D86.0 Sarcoidosis of lung (principal); I10 Essential (primary) hypertension; F17.210 Nicotine dependence, cigarettes, uncomplicated
CPT/HCPCS: 36415; 71045; 80053; 84484; 85025; 93005; 99285

== ENCOUNTER 2022-10-02 11:01 | Outpatient (CLI) | payer OTHER, SELFPAY | END 2022-10-02 11:02 | disposition home or self-care (01) | PROVIDERS: PCP Family Medicine; Visit Provider Internal Medicine Pulmonary Disease | DX: D86.9 Sarcoidosis, unspecified (principal); R07.9 Chest pain, unspecified | CPT/HCPCS: 94010; 94726; 94729 ==

== ENCOUNTER 2022-11-12 10:44 | Outpatient (CLI) | payer OTHER, SELFPAY ==
[2022-11-12 11:29] LABS: Alanine Aminotransferase 12 U/L (0-41); Albumin Level 4.7 g/dL (3.5-5.2); Alkaline Phosphatase 133 U/L (40-130); Blood Urea Nitrogen 6 mg/dL (6-20); Calcium 9.3 mg/dL (8.5-10.5); Carbon Dioxide 30 mmol/L (22-29); Chloride 98 mmol/L (98-107); Chol HDL Ratio 2.64 mg/dL (1.0-5.00); Cholesterol 111 mg/dL (0-200); Globulin 3.2 g/dL (1.3-4.6); Glomerular Filtration Rate 93.9 mL/min (90-130); Glucose 87 mg/dL (65-115); HDL Cholesterol 42 mg/dL (60-100); LDL Cholesterol Calculated 42 mg/dL (50-129); Osmolality Calculated 283 mOsm/kg (285-295); Sodium 138 mmol/L (136-145); Total Bilirubin 0.4 mg/dL (0.15-1.2); Total Protein 7.9 g/dL (6.6-8.7); Triglycerides 136 mg/dL (0-150)
[2022-11-12 11:32] LABS: Anion Gap 14.3 (5-19); Aspartate Amino Transferase 23 U/L (0-40); Potassium 4.3 mmol/L (3.5-5.1)
[2022-11-12 11:49] LABS: Estmated Average Glucose 114; Hemoglobin A1C 5.6 % (4.0-6.0)
[2022-11-12 17:49] LABS: Creatinine Urine, Random 90 mg/dL (39-259); Microalbum Creatinine Ratio Ur 11 mg/dL (0-20); Microalbumin Random Urine 1 ug/dL (0-20)
== END 2022-11-12 10:45 | disposition home or self-care (01) ==
PROVIDERS: PCP Family Medicine; Visit Provider Internal Medicine
DX: E11.65 Type 2 diabetes mellitus with hyperglycemia (principal); E78.2 Mixed hyperlipidemia
CPT/HCPCS: 80053; 80061; 82044; 83036

== ENCOUNTER 2023-02-18 09:23 | Outpatient (CLI) | payer OTHER, SELFPAY ==
[2023-02-18 10:18] LABS: Estmated Average Glucose 117; Hemoglobin A1C 5.7 % (4.0-6.0)
== END 2023-02-18 09:24 | disposition home or self-care (01) ==
PROVIDERS: PCP Family Medicine; Visit Provider Internal Medicine
DX: E11.65 Type 2 diabetes mellitus with hyperglycemia (principal)
CPT/HCPCS: 83036

== ENCOUNTER 2023-05-21 13:57 | Outpatient (CLI) | payer OTHER, SELFPAY ==
[2023-05-21 14:50] LABS: Alanine Aminotransferase 13 U/L (0-41); Albumin Level 4.6 g/dL (3.5-5.2); Alkaline Phosphatase 119 U/L (40-130); Aspartate Amino Transferase 26 U/L (0-40); Blood Urea Nitrogen 9 mg/dL (6-20); Calcium 9.4 mg/dL (8.5-10.5); Carbon Dioxide 31 mmol/L (22-29); Chloride 99 mmol/L (98-107); Chol HDL Ratio 3.82 mg/dL (1.0-5.00); Cholesterol 191 mg/dL (0-200); Globulin 3.5 g/dL (1.3-4.6); Glomerular Filtration Rate 74.5 mL/min (90-130); Glucose 98 mg/dL (65-115); HDL Cholesterol 50 mg/dL (60-100); LDL Cholesterol Calculated 98 mg/dL (50-129); LDL HDL Ratio 1.96 RATIO (0.00-3.22); Osmolality Calculated 289 mOsm/kg (285-295); Sodium 140 mmol/L (136-145); Total Bilirubin 0.3 mg/dL (0.15-1.2); Total Protein 8.1 g/dL (6.6-8.7); Triglycerides 215 mg/dL (0-150)
[2023-05-21 14:51] LABS: Creatinine Urine, Random 101 mg/dL (39-259); Microalbum Creatinine Ratio Ur 10 mg/dL (0-20); Microalbumin Random Urine 1 ug/dL (0-20)
[2023-05-21 15:09] LABS: Estmated Average Glucose 120; Hemoglobin A1C 5.8 % (4.0-6.0)
== END 2023-05-21 13:58 | disposition home or self-care (01) ==
LOC: LAB 14:00 → ONCMED 14:03
PROVIDERS: PCP Family Medicine; Visit Provider Internal Medicine
DX: E11.65 Type 2 diabetes mellitus with hyperglycemia (principal)
CPT/HCPCS: 80053; 80061; 82044; 83036

== ENCOUNTER 2023-07-30 13:46 | Oncology outpatient (recurring) (ONCR) | payer OTHER, SELFPAY ==
[2023-07-30 14:42] LABS: Alanine Aminotransferase 8 U/L (0-41); Albumin Level 4.3 g/dL (3.5-5.2); Alkaline Phosphatase 116 U/L (40-130); Anion Gap 13.6 (5-19); Blood Urea Nitrogen 6 mg/dL (6-20); Calcium 8.9 mg/dL (8.5-10.5); Carbon Dioxide 27 mmol/L (22-29); Chloride 102 mmol/L (98-107); Chol HDL Ratio 4.29 mg/dL (1.0-5.00); Cholesterol 163 mg/dL (0-200); Globulin 2.9 g/dL (1.3-4.6); Glomerular Filtration Rate 83.2 mL/min (90-130); Glucose 100 mg/dL (65-115); HDL Cholesterol 38 mg/dL (60-100); LDL Cholesterol Calculated 79 mg/dL (50-129); LDL HDL Ratio 2.08 RATIO (0.00-3.22); Osmolality Calculated 286 mOsm/kg (285-295); Potassium 3.6 mmol/L (3.5-5.1); Sodium 139 mmol/L (136-145); Total Bilirubin 0.3 mg/dL (0.15-1.2); Total Protein 7.2 g/dL (6.6-8.7); Triglycerides 229 mg/dL (0-150)
[2023-07-30 14:44] LABS: Estmated Average Glucose 114; Hemoglobin A1C 5.6 % (4.0-6.0)
[2023-07-30 14:45] LABS: Creatinine Urine, Random 325 mg/dL (39-259); Microalbum Creatinine Ratio Ur 3 mg/dL (0-20); Microalbumin Random Urine 1 ug/dL (0-20)
[2023-07-30 14:50] LABS: Aspartate Amino Transferase 15 U/L (0-40)
== END 2023-08-05 23:59 | disposition home or self-care (01) ==
PROVIDERS: PCP Family Medicine; Visit Provider Internal Medicine
DX: T38.0X5A Adverse effect of glucocorticoids and synthetic analogues, initial encounter (principal); R73.9 Hyperglycemia, unspecified; E78.2 Mixed hyperlipidemia; E11.9 Type 2 diabetes mellitus without complications
CPT/HCPCS: 36415; 80053; 80061; 82044; 83036

== ENCOUNTER 2023-09-10 15:22 | Emergency (ER) | payer OTHER, SELFPAY ==
--- NOTE | 2023-09-10 15:24 | XR_ITS ---
WS: [id number] Portable AP upright chest, 09/10/2023 Clinical Data: sob Comparison: Portable chest, 06/04/2022 Findings: Upper lobe scarring and fibrosis remain the same. There are bullous changes in both upper l obes. There is scarring in the left lower lobe. The heart is normal. No nodules, masses or effusions are seen. No pneumonia or pneumothorax is present. Impression: No change in bilateral upper lobe and left lower lobe pulmonary parenchymal scarring.
[2023-09-10 15:33] VITALS: BP 140/88; PULSE 102; RESP 18; TEMP 36.6; O2SAT 98; BMI 28.5
[2023-09-10 15:38] VITALS: O2SAT 99
[2023-09-10 15:43] LABS: Basophils % 0.7 %; Eosinophils # 0.1 10^3/uL (0.0-0.8); Eosinophils % 2.2 %; Hematocrit 47.3 % (37-53); Lymphocytes # 0.8 10^3/uL (0.8-4.8); Lymphocytes % 16.8 %; Mean Corpuscular Hemoglobin 25.3 pg (27-33); Mean Corpuscular Volume 76.7 fl (82-101); Mean Platelet Volume 8.2 fL (7.4-10.4); Monocytes # 0.4 10^3/uL (0.2-0.9); Monocytes % 8.3 %; Neutrophils % 71.8 %; Nucleated Red Blood Cells % 0 %; Platelet Count 219 10^3/cmm (157-399); Red Blood Count 6.17 10^6/uL (3.85-5.65); Red Cell Distribution Width 13.3 % (12.1-15.1); White Blood Count 4.59 10^3/uL (3.29-11.43)
--- NOTE | 2023-09-10 15:52 | ECG_ITS ---
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 Measurements Intervals [place] Rate: 109 P: 66 MO: 148 QRS: 50 QRSD: 81 T: 57 QT: 307 QTc: 414 Interpretive Statements SINUS TACHYCARDIA Compared to ECG 06/04/2022 15:58:20 No significant changes Electronically Signed On 09-10-2023 16:40:48 PUPPY SITTER by Jose Rocha M.D. [id number]
[2023-09-10 16:08] VITALS: O2SAT 99
[2023-09-10 16:11] LABS: Alanine Aminotransferase 8 U/L (0-41); Albumin Level 4.5 g/dL (3.5-5.2); Alkaline Phosphatase 116 U/L (40-130); Anion Gap 14.8 (5-19); Aspartate Amino Transferase 17 U/L (0-40); Blood Urea Nitrogen 7 mg/dL (6-20); Calcium 9.4 mg/dL (8.5-10.5); Carbon Dioxide 27 mmol/L (22-29); Chloride 99 mmol/L (98-107); Globulin 3.6 g/dL (1.3-4.6); Glomerular Filtration Rate 83.2 mL/min (90-130); Glucose 93 mg/dL (65-115); NT Pro B Type Natriuretic Pept < 36 pg/mL (0-125); Osmolality Calculated 282 mOsm/kg (285-295); Potassium 3.8 mmol/L (3.5-5.1); Sodium 137 mmol/L (136-145); Total Bilirubin 0.5 mg/dL (0.15-1.2); Total Protein 8.1 g/dL (6.6-8.7)
--- NOTE | 2023-09-10 16:35 | ED_ITS ---
HPI - SOB/Dyspnea 2 General: Chief Complaint: Shortness of Breath/Dyspnea Stated Complaint: lung disease, can't breathe Time Seen by Provider: 09/10/23 15:53 History of Present Illness: HPI Narrative: 37-year-old male presents to the emergen cy department with complaints of increased shortness of breath while he was working today. He states he has a longstanding history of lung disease and felt like he was having significant wheezing prior to arriving in the emergency department. He does appear to be moderately labored breathing. He states he does have a lymph node that is obstructing his vocal cords and when the lymph node swells that his symptoms of difficulty breathing and wheezing become much worse. He denies chest pain dizziness or lightheaded feeling. Review of Systems 2 General: Reports: 10 or more systems reviewed and unremarkable except in HPI and below Resp: Reports: dyspnea and wheezing PFSH ED 2 PFSH: Medical History (Updated 09/10/23 @ 17:18 by Zoran Wilkins MD) Essential (primary) hypertension Tobacco abuse counseling Sarcoidosis of lung GERD (gastroesophageal reflux disease) Bilateral pneumonia Tobacco use Drug-induced hyperglycemia Polyarthralgia Reactive depression (situational) Acute hyperventilation syndrome Surgical History History of lung biopsy H/O right knee surgery Family History Other Cancer Denies family history of Lung disease Social History Smoking and tobacco/nicotine status: former use of tobacco/nicotine Quit status (tobacco/nicotine): has quit using Year quit tobacco: 2016 - 3PPD x 19 Years Alcohol intake: never Substance/Drug Use: never Lives independently: Yes Household members: spouse Marital status: Current occupational status: employed Do you think of yourself as: Straight/Heterosexual Current gender identity: Male Physical Exam 2 Narrative: EXAM NARRATIVE: Constitutional: the patient appears well nourished and with normal development. Vital signs reviewed as documented. HENMT: Normocephalic, atraumatic. Extermal ears with normal appearance without drainage. Nose without drainage, normal appearance. Mucus membranes moist. Neck is supple, No jugular venous distension, trachea is midline, no appreciable carotid bruits. No lymphadenopathy. No meningeal signs. Flexion, extension and lateral rotation is without pain. Eyes: Pupils are equal, round, reactive to light and accommodation. No scleral icterus. Extra-ocular movement are intact. Thorax is symmetrical and with equal rise and fall with respirations. Resp: Tachypneic, increased bilateral expiratory wheezes scattered throughout. Coarse breath sounds to the mid's and bases with prolonged expiratory phase. Cardio: Regular rate and rhythm. Positive S1, S2. No appreciable murmurs, rubs or gallops. GI: Abdominal exam reveals normal bowel sounds to all quadrants. No organomegaly. No obvious palpable masses noted. No hepatomegally appreciated. Soft, nontender to palpation. Extremity: Extremities are non-edematous and both femoral and pedal pulses are 2+ and equal bilaterally. Moves all extremities well, sensation in all extremities. Neuro: Alert and oriented x4, person, place, time and situation. Cranial nerves II through XII are grossly intact, there is no focal neurological deficits that I can appreciate at present. Motor strength in the upper and lower extremities are equal and bilateral 5/5. Psych: Cooperative, calm, normal thought process, appropriate judgment. Skin: No lesions, rashes. No gross abnormalities noted. Back: Symmetrical, no obvious deformity, No CVA tenderness Course 2 Vital Signs: Vital signs: Vital Signs Temperature 98 F 09/10/23 15:33 Pulse Rate 89 09/10/23 17:02 Respiratory Rate 16 09/10/23 16:57 Blood Pressure 140/88 09/10/23 15:33 Pulse Oximetry 95 09/10/23 16:57 Oxygen Delivery Me thod Room Air 09/10/23 16:57 MDM - SOB/Dyspnea Medical Decision Making Physical exam completed and documented, I did review the radiographic examination as well as provide the patient Solu-Medrol and DuoNeb breathing treatment. Patient's oxygen saturation remained 96 to 98% on room air and I discussed need for follow-up with the primary care and possibly pulmonology. Medical Records I reviewed the patient's medical records. Lab Data I reviewed the patient's lab results. 09/10/23 15:36 09/10/23 15:36 Labs/Radiology: Laboratory Results WBC 4.59 10^3/uL (3.29-11.43) 09/10/23 15:36 RBC 6.17 10^6/uL (3.85-5.65) H 09/10/23 15:36 Hgb 15.60 g/dL (11.27-16.99) 09/10/23 15:36 Hct 47.3 % (37-53) 09/10/23 15:36 MCV 76.7 fl (82-101) L 09/10/23 15:36 MCH 25.3 pg (27-33) L 09/10/23 15:36 MCHC 33.0 g/dL (30-55) 09/10/23 15:36 RDW 13.3 % (12.1-15.1) 09/10/23 15:36 Plt Count 219 10^3/cmm (157-399) 09/10/23 15:36 MPV 8.2 fL (7.4-10.4) 09/10/23 15:36 Neut % (Auto) 71.8 % 09/10/23 15:36 Lymph % (Auto) 16.8 % 09/10/23 15:36 [place] % (Auto) 8.3 % 09/10/23 15:36 Eos % (Auto) 2.2 % 09/10/23 15:36 Baso % (Auto) 0.7 % 09/10/23 15:36 Neut # (Auto) 3.30 10^3/uL (1.8-7.7) 09/10/23 15:36 Lymph # (Auto) 0.8 10^3/uL (0.8-4.8) 09/10/23 15:36 [place] # (Auto) 0.4 10^3/uL (0.2-0.9) 09/10/23 15:36 Eos # (Auto) 0.1 10^3/uL (0.0-0.8) 09/10/23 15:36 Baso # (Auto) 0.0 10^3/uL (0.0-0.1) 09/10/23 15:36 Nucleated RBC % (auto) 0 % 09/10/23 15:36 Nucleated RBCs # 0.0 /100WBC 09/10/23 15:36 Sodium 137 mmol/L (136-145) 09/10/23 15:36 Potassium 3.8 mmol/L (3.5-5.1) 09/10/23 15:36 Chloride 99 mmol/L (98-107) 09/10/23 15:36 Carbon Dioxide 27 mmol/L (22-29) 09/10/23 15:36 Anion Gap 14.8 (5-19) 09/10/23 15:36 BUN 7 mg/dL (6-20) 09/10/23 15:36 Creatinine 1.0 mg/dL (0.7-1.2) 09/10/23 15:36 GFR Calculation 83.2 mL/min (90-130) L 09/10/23 15:36 Glucose 93 mg/dL (65-115) 09/10/23 15:36 Calculated Osmolality 282 mOsm/kg (285-295) L 09/10/23 15:36 Calcium 9.4 mg/dL (8.5-10.5) 09/10/23 15:36 Total Bilirubin 0.5 mg/dL (0.15-1.2) 09/10/23 15:36 AST 17 U/L (0-40) 09/10/23 15:36 ALT 8 U/L (0-41) 09/10/23 15:36 Alkaline Phosphatase 116 U/L (40-130) 09/10/23 15:36 NT-Pro-B Natriuret Pep < 36 pg/mL (0-125) 09/10/23 15:36 Total Protein 8.1 g/dL (6.6-8.7) 09/10/23 15:36 Albumin 4.5 g/dL (3.5-5.2) 09/10/23 15:36 Globulin 3.6 g/dL (1.3-4.6) 09/10/23 15:36 All radiology interpretation(s) finalized by discharge EKG Data EKG 1: Interpretation: Twelve-lead EKG obtained at 1552 and reviewed at 1555 demonstrates sinus tachycardia with a ventricular rate of 109, [place] interval 148, QRS duration 81, QT 307, QTc 371, there is no ST elevation or depression to demonstrate acute ischemia or infarction at present. Discharge Plan Discharge Patient Disposition: Home Clinical Impression: Exacerbation of reactive airway disease Qualifiers: Asthma severity: moderate Asthma persistence: persistent Qualified Code(s): J 45.41 - Moderate persistent asthma with (acute) exacerbation Condition: Stable Prescriptions: New prednisone 20 mg tablet 40 mg PO DAILY 5 Days Qty: 10 0RF No Action folic acid 1 mg tablet 1 mg PO DAILY Qty: 30 3RF methotrexate sodium 2.5 mg tablet 7.5 mg PO Q7D Qty: 36 3RF Rx Instructions: on friday sumatriptan succinate 100 mg tablet 100 mg PO Q2H PRN (Reason: migraine headache) Qty: 10 0RF Rx Instructions: do not exceed 2 doses per 24 hrs albuterol sulfate [Ventolin HFA] 90 mcg/actuation HFA aerosol inhaler 2 puff INHALATION Q4H PRN (Reason: Shortness Of Breath) Qty: 8.5 3RF doxycycline hyclate 100 mg tablet 100 mg PO DAILY Qty: 45 0RF Rx Instructions: Take one tablet daily. May take BID for flares prednisone 5 mg tablet 5 mg PO DAILY Qty: 30 3RF pantoprazole 40 mg tablet,delayed release (DR/EC) See Rx Instructions .ROUTE .COMPLEX Qty: 180 3RF Dose Instruction: TAKE ONE TABLET BY MOUTH TWICE DAILY Rx Instructions: TAKE ONE TABLET BY MOUTH TWICE DAILY Ozempic 2 mg/dose (8 mg/3 mL) pen injector See Rx Instructions .ROUTE .COMPLEX Qty: 3.75 0RF Dose Instruction: INJECT 2mg SUBCUTANEOUSLY EVERY 7 DAYS FOR 30 DAYS Rx Instructions: INJECT 2mg SUBCUTANEOUSLY EVERY 7 DAYS FOR 30 DAYS Discharge Orders: Discharge ED (Routine); Ordered 09/10/23 Ordered By: Zoran Wilkins Referrals: Reggie Webb MD [Primary Care Provider] - Discharge Diet: Advance as tolerated Discharge Activity: Resume usual activity Patient Instructions: Opioid Safety, Pain Management Activity Restrictions/Additional Instructions: Activity Restrictions/Additional Instructions: Thank you for choosing [facility] for your healthcare needs today. Please realize that you were seen in the Emergency Department and that we are providing you with an emergency medical screening exam and this may not be a complete and all inclusive of all the testing and or medical work-up that you may need to determine your ailment or severity of your illness. It is very important that you follow-up as instructed with your Primary care provider or Specialist for additional evaluation and to discuss your medical treatment plan. You may return to the Emergency Department should you have concerns or if your condition changes or worsens in any way. Coding Level of Care Code ED Shower Room Attendant for Issac Gaines
[2023-09-10 16:57] VITALS: PULSE 84; RESP 16; O2SAT 95
[2023-09-10] MEDS: ipratropium-albuterol 3 mL Neb INHALATION (16:58)
[2023-09-10] MEDS: methylPREDNISolone sod succ 125 mg/2 mL INJ 60 MG IVP (16:59)
[2023-09-10 17:02] VITALS: PULSE 89
[2023-09-10 17:39] VITALS: PULSE 89; O2SAT 98
== END 2023-09-10 17:41 | disposition home or self-care (01) ==
PROVIDERS: Emergency Medicine; Emergency Provider Internal Medicine; PCP Family Medicine
DX: J45.41 Moderate persistent asthma with (acute) exacerbation (principal); Z87.891 Personal history of nicotine dependence; I10 Essential (primary) hypertension
CPT/HCPCS: 36415; 71045; 80053; 83880; 85025; 93005; 94640; 96374; 99285; J2930

== ENCOUNTER 2023-11-04 16:05 | Oncology outpatient (recurring) (ONCR) | payer OTHER, SELFPAY ==
[2023-11-04 16:44] LABS: Alanine Aminotransferase 12 U/L (0-41); Albumin Level 4.5 g/dL (3.5-5.2); Alkaline Phosphatase 128 U/L (40-130); Anion Gap 14.9 (5-19); Aspartate Amino Transferase 19 U/L (0-40); Blood Urea Nitrogen 5 mg/dL (6-20); Calcium 9.8 mg/dL (8.5-10.5); Carbon Dioxide 28 mmol/L (22-29); Chloride 100 mmol/L (98-107); Chol HDL Ratio 5.32 mg/dL (1.0-5.00); Cholesterol 197 mg/dL (0-200); Glomerular Filtration Rate 93.5 mL/min (90-130); Glucose 127 mg/dL (65-115); HDL Cholesterol 37 mg/dL (60-100); LDL Cholesterol Calculated 88 mg/dL (50-129); LDL HDL Ratio 2.38 RATIO (0.00-3.22); Osmolality Calculated 287 mOsm/kg (285-295); Potassium 3.9 mmol/L (3.5-5.1); Sodium 139 mmol/L (136-145); Total Bilirubin 0.3 mg/dL (0.15-1.2); Total Protein 8.5 g/dL (6.6-8.7); Triglycerides 362 mg/dL (0-150)
[2023-11-04 17:01] LABS: Estmated Average Glucose 117; Hemoglobin A1C 5.7 % (4.0-6.0)
[2023-11-05 07:51] LABS: Creatinine Urine, Random 340 mg/dL (39-259); Microalbum Creatinine Ratio Ur 3 mg/dL (0-20); Microalbumin Random Urine 1 ug/dL (0-20)
== END 2023-11-05 23:59 | disposition home or self-care (01) ==
LOC: ONCMED 16:05
PROVIDERS: PCP Family Medicine; Visit Provider Internal Medicine
DX: E11.9 Type 2 diabetes mellitus without complications (principal)
CPT/HCPCS: 80053; 80061; 82044; 83036

== ENCOUNTER 2023-11-06 06:38 | Outpatient (CLI) | payer OTHER, SELFPAY | END 2023-11-06 06:39 | disposition home or self-care (01) | LOC: RT 06:39 | PROVIDERS: PCP Family Medicine; Visit Provider Internal Medicine Pulmonary Disease | DX: D86.0 Sarcoidosis of lung (principal); R94.2 Abnormal results of pulmonary function studies | CPT/HCPCS: 94010; 94726; 94729 ==

== ENCOUNTER → 2024-03-04 10:05 | Outpatient (BNVA) | payer OTHER, SELFPAY | PROVIDERS: PCP Family Medicine; Visit Provider Family Medicine | DX: E11.9 Type 2 diabetes mellitus without complications (principal); R07.89 Other chest pain; D86.0 Sarcoidosis of lung | CPT/HCPCS: 80053; 83036; 84484; 85025 ==

== ENCOUNTER 2024-03-17 08:37 | Outpatient (CLI) | payer OTHER, SELFPAY ==
--- NOTE | 2024-03-17 09:00 | CT_ITS ---
WS: [id number] CT CHEST CT-HIGH RESOLUTION, NONCONTRAST. HISTORY: Interstitial lung disease. Technique: High-resolution chest CT is performed in inspiration, expiration, supine and prone positio aug[place]. All CT scans at [facility] use at least one of these dose optimization techniques: automated exposure control; mA and/or kV adjustment per patient size (includes targeted exams where dose is mat ched to clinical indication); or iterative reconstruction. DLP: 1272.03 mGy.cm COMPARISON: 07/14/2019 Findings: Bilateral irregular conglomerate like opacifications and tree-in-bud airspace disease is no janee. The conglomerate opacifications has been previously described on 07/14/2019. Conglomerate opacifi cations have progressed since the prior study. Superimposed on a background of chronic emphysema. Leroy ateral predominantly lower lobe tree-in-bud airspace disease with small reticular nodules. There is v olume loss with expiration. No air trapping identified. The conglomerate opacifications do not improv e with prone imaging. No pneumothorax. Heart size is normal. Normal size aorta and pulmonary artery. No adenopathy of any s ignificance on this unenhanced exam. No adrenal mass. No destructive bone lesions. CT/CT chest wo con [id number] Impression: 1. Mild progression of the previously described conglomerate like opacificatio ns bilaterally and tree-in-bud airspace disease with nodular reticulation. Thes e changes have progressed since 2019. 2. Differential includes chronic pneumonia, pulmonary fibrosis and sarcoidosis . The superimposed tree-in-bud airspace disease may be acute. 3. Similar mediastinal and hilar lymph nodes.
== END 2024-03-17 08:38 | disposition home or self-care (01) ==
PROVIDERS: PCP Family Medicine; Visit Provider Internal Medicine Pulmonary Disease
DX: D86.0 Sarcoidosis of lung (principal); J98.4 Other disorders of lung
CPT/HCPCS: 71250

== ENCOUNTER 2024-05-05 11:29 | Oncology outpatient (recurring) (ONCR) | payer OTHER, SELFPAY ==
[2024-05-05 12:06] LABS: Alanine Aminotransferase 8 U/L (0-41); Albumin Level 4.5 g/dL (3.5-5.2); Alkaline Phosphatase 112 U/L (40-130); Aspartate Amino Transferase 20 U/L (0-40); Blood Urea Nitrogen 6 mg/dL (6-20); Carbon Dioxide 25 mmol/L (22-29); Chloride 103 mmol/L (98-107); Chol HDL Ratio 3.96 mg/dL (1.0-5.00); Cholesterol 178 mg/dL (0-200); Globulin 3.5 g/dL (1.3-4.6); Glomerular Filtration Rate 82.8 mL/min (90-130); Glucose 99 mg/dL (65-115); HDL Cholesterol 45 mg/dL (60-100); LDL Cholesterol Calculated 104 mg/dL (50-129); LDL HDL Ratio 2.31 RATIO (0.00-3.22); Osmolality Calculated 286 mOsm/kg (285-295); Sodium 139 mmol/L (136-145); Total Bilirubin 0.4 mg/dL (0.15-1.2); Triglycerides 143 mg/dL (0-150)
[2024-05-05 12:22] LABS: Estmated Average Glucose 114; Hemoglobin A1C 5.6 % (4.0-6.0)
[2024-05-05 12:32] LABS: Creatinine Urine, Random 92 mg/dL (39-259); Microalbum Creatinine Ratio Ur 11 mg/dL (0-20); Microalbumin Random Urine 1 ug/dL (0-20)
== END 2024-05-05 23:59 | disposition home or self-care (01) ==
PROVIDERS: PCP Family Medicine; Visit Provider Internal Medicine
DX: E11.9 Type 2 diabetes mellitus without complications (principal); E16.2 Hypoglycemia, unspecified; E78.2 Mixed hyperlipidemia
CPT/HCPCS: 80053; 80061; 82044; 83036

== ENCOUNTER 2024-07-05 14:05 | Outpatient (CLI) | payer OTHER, SELFPAY ==
--- NOTE | 2024-07-05 14:12 | XR_ITS ---
WS: [id number] Exam: XR cervical spine 3V* [id number] Date/Time of Exam: 07/05/2024 2:25 PM Reason For Exam: neck pain w C4 radicular symptoms Comparison 04/23/1999. No acute fracture or dislocation. Mild facet DJD at all levels. The disc spaces are preserved. Normal paraspinal soft tissues. The odontoid is intact. XR/XR cervical spine 3V* [id number] IMPRESSION: 1. Mild facet DJD otherwise negative C-spine study.
== END 2024-07-05 14:06 | disposition home or self-care (01) ==
PROVIDERS: PCP Family Medicine; Visit Provider Family Medicine
DX: M50.121 Cervical disc disorder at C4-C5 level with radiculopathy (principal)
CPT/HCPCS: 72040

== ENCOUNTER 2024-11-04 14:17 | Oncology outpatient (recurring) (ONCR) | payer OTHER, SELFPAY ==
[2024-11-04 15:09] LABS: Alanine Aminotransferase 10 U/L (0-41); Albumin Level 4.2 g/dL (3.5-5.2); Alkaline Phosphatase 122 U/L (40-130); Anion Gap 14.3 (5-19); Blood Urea Nitrogen 8 mg/dL (6-20); Carbon Dioxide 27 mmol/L (22-29); Chloride 98 mmol/L (98-107); Chol HDL Ratio 5.34 mg/dL (1.0-5.00); Cholesterol 187 mg/dL (0-200); Globulin 3.2 g/dL (1.3-4.6); Glomerular Filtration Rate 73.8 mL/min (90-130); Glucose 106 mg/dL (65-115); HDL Cholesterol 35 mg/dL (60-100); LDL Cholesterol Calculated 93 mg/dL (50-129); LDL HDL Ratio 2.66 RATIO (0.00-3.22); Osmolality Calculated 279 mOsm/kg (285-295); Potassium 4.3 mmol/L (3.5-5.1); Sodium 135 mmol/L (136-145); Total Bilirubin 0.3 mg/dL (0.15-1.2); Total Protein 7.4 g/dL (6.6-8.7); Triglycerides 294 mg/dL (0-150)
[2024-11-04 15:11] LABS: Estmated Average Glucose 123; Hemoglobin A1C 5.9 % (4.0-6.0)
[2024-11-04 15:17] LABS: Aspartate Amino Transferase 21 U/L (0-40)
== END 2024-11-05 23:59 | disposition home or self-care (01) ==
PROVIDERS: PCP Family Medicine; Visit Provider Internal Medicine
DX: R73.9 Hyperglycemia, unspecified (principal); T38.0X5A Adverse effect of glucocorticoids and synthetic analogues, initial encounter; E11.65 Type 2 diabetes mellitus with hyperglycemia; E16.2 Hypoglycemia, unspecified
CPT/HCPCS: 36415; 80053; 80061; 83036

== ENCOUNTER 2025-08-09 19:57 | Observation (INO) | payer OTHER, SELFPAY ==
--- OUTSIDE RECORDS SUMMARY | 2025-08-04 12:20 | XMS_ITS | Encounter Summary ---
Author Organization [facility] Address [address] [place] [address] Care Team Providers Care Diamond Die Polisher Name Role Phone Unavailable Primary Care Provider Unavailabl e Reason for Visit * Reason Comments Follow Up Encounter Details Date Type Department Care Team (Late st Contact Info) Description 08/04/2025 1:20 PM CDT Office Visit [facility] Rheumatology- Head Fergus Ila [address] [place] [address] Angie Sanchez MD [address] [place] [address] Sarcoidosis (Primary Dx); Skin lesions; High risk medication use Social History Tobacco Use Types Packs/Day Years Used Date Smoking Tobacco: Former Cigarettes 2.9 16.9 1 11/22/1995 - 10/22/2012 Passive Smoke Exposure: Current Smokeless Tobacco: Never Sex and Gender Information Value Date Recorded Sex Assigned at Not on file 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 male presents with a Chief Complaint of Follow Up Subjective HPI Pt initially seen 10/2024 for sarcoid. He was diagnosed 7 yrs ago after developing SOB and cervical LAD. He was treated with steroids and 7.5mg weekly MTX. Dyspnea and LAD resolved. Also developed redraised lesions on arms and neck that did not change with oral meds or topical steroids. No alcohol,former smoker. Since last visit, he has continued Humira. He is tolerating well and reports improvement in breathing and in rash. No fevers or infections. He is looking forward to spending the holidays with his and 4mo baby. REVIEW OF SYSTEMS Review of Systems Constitutional: Positive for fatigue. Negative for fever and unexpected weight change. Eyes: Negative for pain, redness and visual disturbance. Respiratory: Negative for cough and shortness of breath. Cardiovascular: Negative for chest pain and leg swelling. Gastrointestinal: Negative for abdominal pain, blood in stool, constipation, diarrhea and nausea. Genitourinary: Negative for hematuria. Musculoskeletal: Positive for arthralgias, back pain and neck pain. Negative for joint swelling andmyalgias. Skin: Positive for rash. Neurological: Negative for dizziness and headaches. Hematological: Negative for adenopathy. Does not bruise/bleed easily. Psychiatric/Behavioral: Negative for dysphoric mood. Objective PHYSICAL EXAM BP 130/84 (BP Location: Right arm, Patient Position (BP): Sitting, BP Cuff Size: Adult) Pulse 91 Wt 94.8 kg (209 lb) SpO2 95% BMI 28.35 kg/m?? Physical Exam Vitals and nursing note reviewed. Constitutional: General: He is not in acute distress. Appearance: Normal appearance. He is well-developed. HENT: Head: Normocephalic and atraumatic. Mouth/Throat: Mouth: Mucous membranes are moist. Pharynx: Oropharynx is clear. Eyes: Comments: Mildly injected Cardiovascular: Rate and Rhythm: Normal rate and regular rhythm. Pulmonary: Effort: Pulmonary effort is normal. Breath sounds: Wheezing (a few scattered) present. Abdominal: General: Bowel sounds are normal. Musculoskeletal: General: No tenderness or deformity. Normal range of motion. Comments: No synovitis. Lymphadenopathy: Cervical: No cervical adenopathy. Skin: General: Skin is warm and dry. Findings: Rash (round red lesions on arms, neck, arndt, improving from prior.) present. Neurological: General: No focal deficit present. Mental Status: He is alert. Motor: No abnormal muscle tone. Psychiatric: Behavior: Behavior normal. Procedures Assessment ASSESSMENT and PLAN: ICD-10-CM ICD-9-CM 1. Sarcoidosis D86.9 135 CBC WITH DIFFERENTIAL COMPREHENSIVE METABOLIC PANEL 2. Skin lesions L98.9 709.9 3. High risk medication use Z79.899 V58.69 Pulmonary sarcoid, diagnosed by biopsy. Also with multiple skin lesions, which are not sarcoid on biopsy. Previously on prednisone and low dose MTX. Now on Humira with improvement,. Will continue. Off of prednisone... Will check labs today. RTC 16-24 weeks * Olga Davidson LPN - 08/04/2025 1:29 PM CDT Follow up appt, Alonso denies changes since last visit documented in this encounter Plan of Treatment Upcoming Encounters Date Type Department Care Team (Late st Contact Info) Description 10/25/2025 2:00 PM TECHNICAL COMMUNICATOR Office Visit [facility] Pulmonology [address] [place] [address] Arcadio Rodriguez MD [address] [place] [address] 02/02/2026 1:00 PM CDT Office Visit [facility] Rheumatology- Sonido Thorpe [address] [place] [address] Angie Sanchez MD [address] [place] [address] Scheduled Orders Name Type Priority Associated Diagnoses Orde r Schedule CBC WITH DIFFERENTIAL Lab Routine Sarcoidosis Expected: 08/04/2025, Expires: 10/03/2025 COMPREHENSIVE METABOLIC PANEL Lab Routine Sarcoidosis Expected: 08/04/2025, Expires: 08/04/2026 documented as of this encounter Visit Diagnoses Diagnosis Sarcoidosis- Primary Skin lesions High risk medication use Encounter for long-term (current) use of other medications documented in this encounter
--- OUTSIDE RECORDS SUMMARY | 2025-08-04 12:20 | XMS_ITS | Encounter Summary ---
Author Organization [facility] Address [address] [place] [address] Care Team Providers Care Delivery Associate Name Role Phone Unavailable Primary Care Provider Unavailabl e Reason for Visit * Reason Comments Follow Up Encounter Details Date Type Department Care Team (Late st Contact Info) Description 08/04/2025 1:20 PM CDT Office Visit [facility] Rheumatology- Head Teller Ila [address] [place] [address] Angie Sanchez MD [address] [place] [address] Sarcoidosis (Primary Dx); Skin lesions; High risk medication use Social History Tobacco Use Types Packs/Day Years Used Date Smoking Tobacco: Former Cigarettes 2.9 16.9 1 11/22/1995 - 10/22/2012 Passive Smoke Exposure: Current Smokeless Tobacco: Never Sex and Gender Information Value Date Recorded Sex Assigned at Not on file 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 [place] [address] Arcadio Rodriguez MD [address] [place] [address] 02/02/2026 1:00 PM CDT Office Visit [facility] Rheumatology- Sonido Thorpe [address] [place] [address] Angie Sanchez MD [address] [place] [address] Scheduled Orders Name Type Priority [...]
[2025-08-09] VITALS (12 sets, daily range): BP systolic 103–173; BP diastolic 70–91; PULSE 92–135; RESP 16–30; O2SAT 85–98; BMI 4198.5
--- NOTE | 2025-08-09 20:00 | XRR_ITS ---
PROCEDURE INFORMATION: Exam: XR Chest Exam date and time: 08/09/2025 8:09 PM Age: 39 years old Clinical indication: Shortness of breath TECHNIQUE: Imaging protocol: Radiologic exam of the chest. Views: 1 view. COMPARISON: [place] chest [facility] [place] [place] [address] 03/17/2024 9:07 AM FINDINGS: Lungs: There are multifocal opacities involving the upper lobes and left lower lobe findings suggestive of progressive massive fibrosis possibly related to entities such as sarcoidosis or in entities such as silicosis. Correlation with patient history recommended Pleural spaces: Unremarkable. No pleural effusion. No pneumothorax. Heart/Mediastinum: Heart and bony structures showed no acute findings Bones/joints: See Heart/Mediastinum finding. 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
--- OUTSIDE RECORDS SUMMARY | 2025-08-09 20:00 | XMS_ITS | Clinical Summary ---
Author Organization [facility] Address [address] [place] [address] Care Team Providers Care Line Analyst Name Role Phone Unavailable Primary Care Provider Unavailabl e Allergies No known active allergies Medications omeprazole (PriLOSEC) 40 mg Capsule, Delayed Release(E.C.) Take 40 mg by mouth daily. Active albuterol sulfate HFA 90 mcg/actuation aerosol inhalerIndicat ions:Pulmonary sarcoidosis,Ob structive lung disease (CMS/HCC) Take 2 Puffs by inhalation see administration instructions. 5 Active clobetasoL (TEMOVATE) 0.05 % Ointment Apply to affected area see administration instructions. 5 Active pantoprazole (PROTONIX) 40 mg Tablet, Delayed Release (E.C.) Take 1 Tablet by mouth 2 times daily. 5 Active predniSONE (DELTASONE) 20 mg tablet Take 20 mg by mouth see administration instructions. 5 Active budesonide-for moteroL (SYMBICORT) 160-4.5 mcg/actuation HFA Aerosol InhalerIndicat ions:Pulmonary sarcoidosis,Ob structive lung disease (CMS/HCC) Take 2 Puffs by inhalation 2 times daily. 1 Gram 5 5 Active predniSONE (DELTASONE) 10 mg tablet 40mg daily x 3 days, then 30mg x 3 days, then 20mg x 3 days, then 10mg x 3 days, then stop 30 Tablet 5 Active celecoxib (CeleBREX) 200 mg capsule Take 1 Capsule (200 mg) by mouth 2 times daily. 60 Capsule 2 5 Active adalimumab (Humira,CF, Pen) 40 mg/0.4 mL Pen Injector Kit Inject 0.4 mL (40 mg) by subcutaneous injection every 2 weeks. CITRATE FREE 2 Each 3 Active Active Problems Problem Noted Date Diagnosed Date Pulmonary sarcoidosis 12/22/2024 Restrictive lung disease 12/22/2024 Former smoker, stopped smoking in distant past 0 12/22/2024 Obstructive lung disease 12/22/2024 Encounters Date Type Department Care Team Description 08/04/2025 1:20 PM CDT Office Visit [facility] [address] [place] [address] Angie Sanchez MD Sarcoidosis (Primary Dx); Skin lesions; High risk medication use 08/03/2025 External Device Data STL ABSTRACTION Provider, Abstract 08/03/2025 External Device Data STL ABSTRACTION Provider, Abstract 07/12/2025 External Device Data STL ABSTRACTION Provider, Abstract 06/28/2025 External Device Data STL ABSTRACTION Provider, Abstract 06/21/2025 External Device Data STL ABSTRACTION Provider, Abstract 06/09/2025 Refill [facility] [address] [place] [address] Angie Sanchez MD 06/07/2025 External Device Data STL ABSTRACTION Provider, Abstract 05/24/2025 External Device Data STL ABSTRACTION Provider, Abstract 05/24/2025 External Device Data STL ABSTRACTION Provider, Abstract 05/10/2025 External Device Data STL ABSTRACTION Provider, Abstract from Last 3 Months Social History Tobacco Use Types Packs/Day Years Used Date Smoking Tobacco: Former Cigarettes 2.9 16.9 1 11/22/1995 - 10/22/2012 Passive Smoke Exposure: Current Smokeless Tobacco: Never Sex and Gender Information Value Date Recorded Sex Assigned at Not on file 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 Gender Identity Not on file Sexual Orientation Not on file Last Filed Vital Signs Vital Sign Reading Time Taken Comments Blood Pressure 130/84 08/04/2025 1:26 PM CDT Pulse 91 08/04/2025 1:26 PM CDT Temperature - - Respiratory Rate - - Oxygen Saturation 95% 08/04/2025 1:26 PM CDT Inhaled Oxygen Concentration - - Weight 94.8 kg (209 lb) 08/04/2025 1:26 PM CDT Height 182.9 cm (6') 04/26/2025 3:51 PM CDT Body Mass Index 28.35 04/26/2025 3:51 PM CDT Plan of Treatment Upcoming Encounters Date Type Department Care Team (Late st Contact Info) Description 10/25/2025 2:00 PM DRUM OPERATOR Office Visit [facility] Pulmonology [address] [place] [address] Arcadio Rodriguez MD [address] [place] [address] 02/02/2026 1:00 PM CDT Office Visit [facility] Rheumatology- Sonido Thorpe [address] [place] [address] Angie Sanchez MD [address] [place] [address] Health Maintenance Due Date Last Done Comments Pre-Diabetes and Diabetes Screening 1983 DTAP/TDAP/TD VACCINES (1 - Tdap) 2002 HEPATITIS B VACCINES (1 of 3 - 19+ 3-dose series) 2002 HPV VACCINES (1 - 3-dose SCDM series) 2010 INFLUENZA VACCINE (#1) 2025 10/06/2014 COVID-19 Vaccine ( season) 2025, 04/23/[address] [place] [address] [address] [place] [id number] Member Subscriber Plan / Payer (Ef fective 2024-Present) Name:Alonso Ojeda Relation to Subscriber:Self Name:Alonso Ojeda Payer ID:[id number] (NAIC) Type:TARA Address: [facility] [address] [place] [id number]
--- OUTSIDE RECORDS SUMMARY | 2025-08-09 20:00 | XMS_ITS | Encounter Summary ---
Author Organization [facility] Address 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 Gender Identity Not on file Sexual Orientation Not on file documented as of this encounter Plan of Treatment Upcoming Encounters Date Type Department Care Team (Late st Contact Info) Description 10/25/2025 2:00 PM TANK BOTTOM ASSEMBLER Office Visit [facility] Pulmonology [address] [place] [address] Arcadio Rodriguez MD [address] [place] [address] 02/02/2026 1:00 PM CDT Office Visit [facility] Rheumatology- Sonido Pardo [place] [address] [place] [address] Angie Sanchez MD [address] [place] [address] documented as of this encounter Visit Diagnoses Not on filedocumented in this encounter
--- OUTSIDE RECORDS SUMMARY | 2025-08-09 20:00 | XMS_ITS | Encounter Summary ---
Author Organization [facility] Address [address] [place] [address] Care Team Providers Care Bedspread Folder Name Role Phone Unavailable Primary Care Provider [...] on file Legal Sex Male 12:35 PM SODA WORKER Gender Identity Not on file Sexual Orientation Not on file documented as of this encounter Plan of Treatment Upcoming Encounters Date Type Department Care Team (Late st Contact Info) Description 10/25/2025 2:00 PM SODA WORKER Office Visit [facility] Pulmonology [address] [place] [address] Arcadio Rodriguez MD [address] [place] [address] 02/02/2026 1:00 PM CDT Office Visit [facility] Rheumatology- Sonido Pardo [place] [address] [place] [address] Angie Sanchez MD [address] [place] [address] documented as of this encounter Visit Diagnoses Not on filedocumented in this encounter
--- OUTSIDE RECORDS SUMMARY | 2025-08-09 20:00 | XMS_ITS | Data Portability ---
Author Organization [facility] [address] [facility] Mariana Smith, [facility] Address [address] [address] Assessment No assessment recorded. Plan of Treatment Reminders Order Date Submit Date Provider Last Modified By Organization Details Last Modified Time Details Appointments None recorded. Lab semen analysis (post vasectomy) 2022 023 [email or web address] [facility] ([facility] [address] [place] [address], [phone], 3 17:12:57 Referral None recorded. Procedures None recorded. Surgeries vasectomy (SURG) 2022 023 [id number] Not available 17:45:52 Imaging None recorded. Medication Orders None recorded. Patient TargetsNo targets recorded. Patient Instructions Encounter Date Encounter Id Patient Instructions Last Modified By Organization Details Last Modified Time 05/23/2023 [id number] He will make appt. Permit form was signed. [email or web address] Not available 05/23/2023 10:50:19 Reason for Referral None Reported. Results Created Date Observation Date Name Description Value Unit Range Abnormal Flag Note LastModifiedBy Organization Detail LastModifiedTime 08/13/20 23 08/13/2023 semen elvis sis (post vasec johan) Motile Sperm Seen Not Available [facility] ([facility]) [address] [place] [address], [phone], 08/13/2023 16:39:00 Result Notes None recorded. Medical Equipment None Reported. Allergies No known drug allergies Medications Name Sig Start Date Stop Date Status Note LastModified by Organization Details LastModified Time atorvasta tin 40 mg tablet TAKE ONE TABLET BY MOUTH DAILY 05/23 completed Not Available Not Available Not Available doxycycli ne hyclate 100 mg capsule TAKE ONE CAPSULE BY MOUTH TWICE DAILY with A full GLASS of water. will cause sun sensitiv ity. take probioti c suppleme nt 05/23 completed Not Available Not Available Not Available prednison e 5 mg tablet TAKE ONE TABLET BY MOUTH DAILY active Not Available Not Available No t Available oxycodone -acetamin ophen 5 mg-325 mg tablet TAKE TWO TABLETS BY MOUTH FOR ONE DAY active Not Available Not Available No t Available methotrex ate sodium 2.5 mg tablet TAKE THREE TABLETS BY MOUTH every SEVEN DAYS ON 05/23 completed Not Available Not Available Not Available prednison e 2.5 mg tablet TAKE 1 TABLET BY MOUTH DAILY FOR 60 DAYS IN ADDITION TO 5 MG OF PREDNISO NE FOR A TOTAL OF 7.5 MG active Not Available Not Available No t Available pantopraz ole 40 mg tablet,de layed release TAKE ONE TABLET BY MOUTH TWICE DAILY active Not Available Not Available No t Available diclofena c sodium 75 mg tablet,de layed release two times daily 05/23 completed Recorded 04/10/20 16 2:12PM by Aki Hernandez DO, Office Visit; Refill Quantity : 0; Not Available Not Available Not Available folic acid 1 mg tablet TAKE ONE TABLET BY MOUTH DAILY active Not Available Not Available No t Available diazepam 10 mg tablet TAKE ONE TABLET BY MOUTH FOR ONE DAY active Not Available Not Available No t Available Prilosec qod 05/23 completed 0; Recorded 04/10/20 16 1:40PM by Michelle Jose LPN, Office Visit; Not Available Not Available Not Available Ozempic 0.25 mg or 0.5 mg (2 mg/1.5 mL) subcutane ous pen injector INJECT 1 MG (0.75 ML) SUBCUTAN EOUSLY EVERY WEEK 05/23 completed Not Available Not Available Not Available Ozempic 1 mg/dose (4 mg/3 mL) subcutane ous pen injector INJECT 1 MG (0.75 ML) SUBCUTAN EOUSLY EVERY WEEK active Not Available Not Available No t Available Vitals Date Recorded Body weight Body mass index (BMI) Body height Oxygen saturation Oxygen saturation in Arterial blood by Pulse oximetry Heart rate Systolic And Diastolic Provider Name and Address Organization Details Last Updated DateTime 3 53510.4 g 28.5 kg/m2 182.88 cm 100 % 100 % 52 /min 116/80 mm[Hg] [facility] 3 10:12:48 Date Recorded Body height Body mass index (BMI) Body weight Oxygen saturation Oxygen saturation in Arterial blood by Pulse oximetry Heart rate Systolic And Diastolic Provider Name and Address Organization Details Last Updated DateTime 3 182.88 cm 27.9 kg/m2 89632.0 3 g 98 % 98 % 94 /min 130/90 mm[Hg] [facility] 3 16:55:00 Social History None recorded. Functional Status Question Answer Note LastModified by Organizat ion Details LastModified Time Do you use any illicit or recreational drugs? No [email or web address] Information not available 05/23/2023 What is your level of alcohol consumption? None [email or web address] Information not available 05/23/2023 Mental Status None recorded. Family History Nothing Reported. Medical History No medical history recorded. Immunizations Vaccine Type Date Status Note Provider Nam e and Address Organization Details Recorded Time COVID-19, mRNA, LNP-S, PF, 100 mcg/0.5mL dose or 50 mcg/0.25mL dose 1 completed RADHA mandujano [facility] 05/23/2023 10:07:16 COVID-19, mRNA, LNP-S, PF, 100 mcg/0.5mL dose or 50 mcg/0.25mL dose 1 completed RADHA mandujano [facility] 05/23/2023 10:07:16 Influenza, split virus, trivalent, preservative 5 completed Not Available [facility] 06/20/2023 15:54:12 Past Encounters Encounter ID Performer Location Encounter Start Date Encounter Closed Date Diagnosis/Indication Diagnosis SNOMED-CT Code Diagnosis ICD10 Code Diagnosis IMO Codes Diagnosis Note [id number] Charanjit Saunders MD [facility] ([facility]) [address] [place] [address] 05/23/2023 10:02:13 05/23/2023 12:08:51 Vasectomy requested 810091076 Z30.2 Patient is here for a vasectomy consult. He and his significan t other have onechildre n and have decided that they do not want to have any more children. He denies any contraindi cations and has not had any previous significan t trauma to the genital area. Benefits and risks were discussed with the patient. [id number] Charanjit Saunders MD [facility] ([facility]) [address] [place] [phone] 06/20/2023 15:49:20 06/20/2023 19:19:51 Vasectomy requested [id number] Z30.2 Patient is here for a vasectomy consult. He and his significan t other have onechildre n and have decided that they do not want to have any more children. He denies any contraindi cations and has not had any previous significan t trauma to the genital area. Benefits and risks were discussed with the patient. [id number] Charanjit Saunders MD [facility] ([facility]) [address] [place] [address] 08/13/2023 16:09:23 08/21/2023 10:00:36 History of vasectomy 706902713 Z98.52 Health Concerns Section Related Observation LastModified by Organization Detai ls LastModified Time None Recorded Concern Status LastModified by Organization Details LastModified Time None Recorded Advance Directives Directive None Recorded Payers Insurance Date Sequence Insurance Name Policy Number Policy Calderon Covered Member ID Calderon Member ID Guarantor Name 07/07/2025 1 [facility] ([id number]) [id number] Alonso Ojeda [id number] Alonso Ojeda 07/07/2025 1 [place]) Alonso Ojeda [id number] Alonso Ojeda Notes Date Note Type Note Provider Name and Address Organization Details Recorded Time 05/23/2023 text/html Vasectomy Consult.. One biological kid. He does not want any more children. Charanjit Saunders MD [address] [place] [address], [phone], [facility] Mariana Smith 05/23/2023 10:50:31 06/20/2023 text/html Vasectomy Procedure. Charanjit Saunders MD [address] [place] [address], [phone], [facility] Mariana Smith 06/20/2023 18:37:52
--- NOTE | 2025-08-09 20:05 | ECG_ITS ---
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 Measurements Intervals Mallie Rate: 133 P: 68 NJ: 178 QRS: 48 QRSD: 78 T: 62 QT: 302 QTc: 451 Interpretive Statements SINUS TACHYCARDIA ABNORMAL RHYTHM ECG Compared to ECG 09/10/2023 15:52:50 No significant changes Electronically Signed On 08-09-2025 21:50:36 FRUIT PICKER MACHINE OPERATOR by Alfredo Porter M.D. [email or web address]
[2025-08-09] MEDS: ondansetron 2 mg/ML SDV 2 mL 4 MG IVP (20:14)
[2025-08-09] MEDS: HYDROmorphone 0.5 MG/0.5 ML INJ 2 MG IVP (20:15)
[2025-08-09 20:17] LABS: Hematocrit 44.1 % (37-53); Hemoglobin 15.10 g/dL (11.27-16.99); Mean Corpuscular HGB Conc 34.2 g/dL (30-55); Mean Corpuscular Hemoglobin 26.6 pg (27-33); Mean Corpuscular Volume 77.6 fl (82-101); Nucleated Red Blood Cells % 0 %; Platelet Count 229 10^3/cmm (157-399); Red Blood Count 5.68 10^6/uL (3.85-5.65); White Blood Count 7.29 10^3/uL (3.29-11.43)
--- NOTE | 2025-08-09 20:25 | CTR_ITS ---
PROCEDURE INFORMATION: Exam: CTA Chest With Contrast CTA Abdomen and Pelvis With Contrast Exam date and time: 08/09/2025 8:38 PM Age: 39 years old Clinical indication: Chest pressure; Severe chest pain, sudden onset, concern for dissection TECHNIQUE: Imaging protocol: Computed tomographic angiography of the chest with contrast. Exam focused on the arteries. Computed tomographic angiography of the abdomen and pelvis with contrast. Exam focused on the arteries. 3D rendering (Not supervised by radiologist): MIP and/or 3D reconstructed images were created by the technologist. Radiation optimization: All CT scans at this facility use at least one of these dose optimization techniques: automated exposure control; mA and/or kV adjustment per patient size (includes targeted exams where dose is matched to clinical indication); or iterative reconstruction. Contrast material: [id number]; Contrast volume: 100 ml; Contrast route: INTRAVENOUS (IV); COMPARISON: CT abdomen pelvis w con* [id number] 02/21/2021 10:46 AM RADIATION DOSE METRICS: Total DLP (mGy-cm): 1185.53 FINDINGS: VASCULATURE: Pulmonary arteries: There is no acute or chronic pulmonary embolism present Aorta: No aortic aneurysm. No aortic dissection. Celiac and mesenteric arteries: No occlusion or significant stenosis. Renal arteries: No occlusion or significant stenosis. Right iliac arteries: No occlusion or significant stenosis. Left iliac arteries: No occlusion or significant stenosis. CHEST: Lungs: There are confluent areas of parenchymal or retractile changes in the central peribronchovascular interstitial the upper lobes and lower lobes with reticulonodular appearance. Differential to consider would include entities such as sarcoidosis or silicosis with areas of progressive massive fibrosis. Pleural spaces: There are no pleural effusions are present Heart: Unremarkable. No cardiomegaly. No pericardial effusion. ABDOMEN AND PELVIS: Liver: No mass. Gallbladder and biliary ducts: Unremarkable. No calcified stones. No ductal dilation. Pancreas: Unremarkable. No mass. No ductal dilation. Spleen: Unremarkable. No splenomegaly. Adrenal glands: Unremarkable. No mass. Kidneys and ureters: Unremarkable. No solid mass. No hydronephrosis. Stomach and bowel: Unremarkable. No obstruction. No mucosal thickening. Appendix: No evidence of appendicitis. Intraperitoneal space: Unremarkable. No free air. No significant fluid collection. Urinary bladder: Unremarkable. No mass. Reproductive: Unremarkable as visualized. Lymph nodes: Unremarkable. No enlarged lymph nodes. Bones/joints: Unremarkable. No acute fracture. Soft tissues: Unremarkable. Other findings: There are no findings present to suggest aneurysm or dissection CT/CT [facility] [place]dpel [id number] IMPRESSION: No findings present to suggest aneurysm or dissection No acute or chronic pulmonary embolism Findings of retractile changes in the central peribronchovascular interstitial the upper lower lobes with reticulonodular opacities differential to consider would include the possibility of sarcoidosis or silicosis further workup recommended.
--- NOTE | 2025-08-09 20:27 | W.ED.CHESTPA ---
HPI - Chest Pain General: Chief Complaint: Chest Pain Stated Complaint: CP, SOB Time Seen by Provider: 08/09/25 20:08 History of Present Illness: Patient is a 39-year-old male with a past medical history of sarcoidosis, GERD presents with a chief complaint of sudden onset severe left-sided chest pain with radiation to the back. On initial exam, patient appears in severe pain and discomfort, is unable to provide history. states that he was rocking his son to sleep when all of a sudden pain came on. Patient has never had pain like this before. He has not been febrile. Patient reports shortness of breath. He has been nauseated and vomiting due to pain. Patient has tried nitroglycerin at home which provided minimal relief. He has had chest pain before but never anything this severe. Prior to onset of pain, patient was not complaining of abdominal pain, dysuria, hematuria or change in bowel habits. Patient does not have any history of CAD, CHF, DVT/PE, personal or family history of aneurysms or aortic dissections. Related Data Previous Rx's ?Medication ?Instructions ?Recorded pantoprazole 40 mg tablet,delayed See Rx Instructions .Route 06/03/24 release .COMPLEX #180 tabs semaglutide 1 mg/dose (4 mg/3 mL) 1 mg (0.75 mL) SUBCUT Q7D #3 mL 11/08/24 subcutaneous pen injector (Ozempic) albuterol sulfate 90 mcg/actuation 2 puff inhalation Q4H PRN 11/11/24 aerosol inhaler (Ventolin HFA) Shortness Of Breath #8.5 grams prednisone 20 mg tablet 20 mg PO .COMPLEX #20 tabs 11/11/24 diclofenac sodium 75 mg See Rx Instructions .Route 11/15/24 tablet,delayed release .COMPLEX #60 tabs Allergies Allergy/AdvReac Type Severity Reaction Status Date / Time No Known Allergies Allergy Verified 08/09/25 20:16 [facility] ED PFS: Medical History (Updated 08/09/25 @ 22:36 by Alyson Green MD) Essential (primary) hypertension Tobacco abuse counseling Sarcoidosis of lung GERD (gastroesophageal reflux disease) Bilateral pneumonia Tobacco use Drug-induced hyperglycemia Polyarthralgia Reactive depression (situational) Acute hyperventilation syndrome Surgical History History of lung biopsy H/O right knee surgery Family History Other Cancer Denies family history of Lung disease Social History Smoking and tobacco/nicotine status: tobacco/nicotine user, details unknown Quit status (tobacco/nicotine): has quit using Year quit tobacco: 2016 - 3PPD x 19 Years Alcohol intake: never Substance/Drug Use: never Lives independently: Yes Household members: spouse Marital status: Current occupational status: employed Do you think of yourself as: Straight/Heterosexual Current gender identity: Male Physical Exam Narrative: EXAM NARRATIVE: Vitals are reviewed. On initial exam, patient appears to be in severe pain. He is hypertensive, very tachycardic with a heart rate between 130-150. Patient is tachypneic though lungs are clear to auscultation. Exam is limited as patient is unable to sit up for exam. He has SpO2 of 98% on room air. Abdomen is soft, nondistended, mild tenderness in the left lower quadrant. No CVA tenderness with percussion of either flank. Extremities are symmetric without edema. Course Vital Signs: Vital signs: Vital Signs Pulse Rate 135 H 08/09/25 20:10 Respiratory Rate 30 H 08/09/25 20:10 Blood Pressure 173/77 08/09/25 20:10 Pulse Oximetry 98 08/09/25 20:10 Oxygen Delivery Me thod Room Air 08/09/25 20:10 MDM - Chest Pain Medical Decision Making 39-year-old male with a chief complaint of sudden onset severe chest pain while rocking his son to sleep. There is no trauma reported. Differential diagnosis includes but is not limited to, ACS, aortic dissection, aortic aneurysm, pulmonary embolus, pneumothorax, kidney stone, pyelonephritis, cholelithiasis, cholecystitis, pancreatitis, other. On exam, patient is hypertensive, tachycardic, appears to be in severe discomfort and pain. He was promptly treated with IV Zofran and IV Dilaudid. He was evaluated with CBC, BMP, troponin, BNP, EKG, chest x-ray, COVID and flu screen and CT of the chest, abdomen pelvis to r/o dissection. EKG does not demonstrate a STEMI. Initial troponin is negative. There is no evidence of heart failure. Patient does not have any actionable electrolyte abnormalities and has normal kidney function. CT imaging shows: IMPRESSION: No findings present to suggest aneurysm or dissection No acute or chronic pulmonary embolism Findings of retractile changes in the central peribronchovascular interstitial the upper lower lobes with reticulonodular opacities differential to consider would include the possibility of sarcoidosis or silicosis further workup recommended. 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 No indication for emergent cath at this time. Patient is diaphoretic and does not appear well. He was admitted for observation and further care. Of note, on reexamination he was noted to be wheezing, treated w/duoneb and dexamethasone. Lab Data 08/09/25 20:10 08/09/25 20:10 Radiology Impressions Chest X-Ray 08/09/25 20:00 IMPRESSION: Findings in accordance with changes related to progressive massive fibrosis as was seen on prior examinations no new opacities demonstrated see above comment for differential considerations. Chest/Abdomen/Pelvis CTA 08/09/25 20:25 IMPRESSION: No findings present to suggest aneurysm or dissection No acute or chronic pulmonary embolism Findings of retractile changes in the central peribronchovascular interstitial the upper lower lobes with reticulonodular opacities differential to consider would include the possibility of sarcoidosis or silicosis further workup recommended. Laboratory Results WBC 7.29 10^3/uL (3.29-11.43) 08/09/25 20:10 RBC 5.68 10^6/uL (3.85-5.65) H 08/09/25 20:10 Hgb 15.10 g/dL (11.27-16.99) 08/09/25 20:10 Hct 44.1 % (37-53) 08/09/25 20:10 MCV 77.6 fl (82-101) L 08/09/25 20:10 MCH 26.6 pg (27-33) L 08/09/25 20:10 MCHC 34.2 g/dL (30-55) 08/09/25 20:10 RDW 13.2 % (12.1-15.1) 08/09/25 20:10 Plt Count 229 10^3/cmm (157-399) 08/09/25 20:10 MPV 8.3 fL (7.4-10.4) 08/09/25 20:10 Neut % (Auto) 73.0 % 08/09/25 20:10 Lymph % (Auto) 16.0 % 08/09/25 20:10 Chaves % (Auto) 8.4 % 08/09/25 20:10 Eos % (Auto) 2.1 % 08/09/25 20:10 Baso % (Auto) 0.4 % 08/09/25 20:10 Neut # (Auto) 5.32 10^3/uL (1.8-7.7) 08/09/25 20:10 Lymph # (Auto) 1.2 10^3/uL (0.8-4.8) 08/09/25 20:10 Chaves # (Auto) 0.6 10^3/uL (0.2-0.9) 08/09/25 20:10 Eos # (Auto) 0.2 10^3/uL (0.0-0.8) 08/09/25 20:10 Baso # (Auto) 0.0 10^3/uL (0.0-0.1) 08/09/25 20:10 Nucleated RBC % (auto) 0 % 08/09/25 20:10 Nucleated RBCs # 0.0 /100WBC 08/09/25 20:10 Sodium 138 mmol/L (136-145) 08/09/25 20:10 Potassium 3.8 mmol/L (3.5-5.1) 08/09/25 20:10 Chloride 101 mmol/L (98-107) 08/09/25 20:10 Carbon Dioxide 22 mmol/L (22-29) 08/09/25 20:10 Anion Gap 18.8 (5-19) 08/09/25 20:10 BUN 8 mg/dL (6-20) 08/09/25 20:10 Creatinine 1.0 mg/dL (0.7-1.2) 08/09/25 20:10 GFR Calculation 82.3 mL/min (90-130) L 08/09/25 20:10 Glucose 132 mg/dL (65-115) H 08/09/25 20:10 Calculated Osmolality 286 mOsm/kg (285-295) 08/09/25 20:10 Calcium 9.0 mg/dL (8.5-10.5) 08/09/25 20:10 Troponin T Baseline < 6 ng/L (0-15) 08/09/25 20:10 NT-Pro-B Natriuret Pep < 36 pg/mL (0-125) 08/09/25 20:10 Influenza A (PCR) Negative (Negative) 08/09/25 20:31 Influenza Type B (PCR) Negative (Negative) 08/09/25 20:31 RSV (PCR) Negative (Negative) 08/09/25 20:31 SARS-CoV-2 (PCR) Negative (Negative) 08/09/25 20:31 XR interpretation done by ED provider, pending radiology final review EKG Data EKG 1: Interpretation: Sinus tachycardia with a heart rate of 124, normal axis, normal intervals, no STEMI. Discharge Plan Discharge Patient Disposition: Admitted As Inpatient Clinical Impression: Sarcoidosis of lung, Chest pain of unknown etiology, Asthma with COPD Condition: Stable Coding Level of Care Code ED Guzzler Builder for Chg Fwd Heart Score HEART Score Components History: Moderately Suspicious EKG: Normal Age: Less than 45 yrs Risk Factors: 1 or 2 Risk Factors Troponin: Baseline Trop <16 ng/L HEART Score RESULT HEART Score: 2
[2025-08-09] MEDS: iohexol 350 mg/mL 500 mL Btl (per mL) IV (20:41)
[2025-08-09 20:48] LABS: Troponin(5th) Baseline < 6 ng/L (0-15)
[2025-08-09 20:56] LABS: Anion Gap 18.8 (5-19); Blood Urea Nitrogen 8 mg/dL (6-20); Calcium 9.0 mg/dL (8.5-10.5); Carbon Dioxide 22 mmol/L (22-29); Chloride 101 mmol/L (98-107); Creatinine Clr Calc Pharmacy 134.0928; Glucose 132 mg/dL (65-115); NT Pro B Type Natriuretic Pept < 36 pg/mL (0-125); Osmolality Calculated 286 mOsm/kg (285-295); Potassium 3.8 mmol/L (3.5-5.1); Sodium 138 mmol/L (136-145)
[2025-08-09 21:39] LABS: Respiratory Syncytial Virus Ce NEGATIVE (Negative); SARS-CoV-2 PCR NEGATIVE (Negative)
--- NOTE | 2025-08-09 22:00 | ECG_ITS ---
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 Measurements Intervals [place] Rate: 90 P: 59 ND: 168 QRS: 51 QRSD: 94 T: 59 QT: 350 QTc: 430 Interpretive Statements SINUS RHYTHM Compared to ECG 08/09/2025 20:05:42 Sinus tachycardia no longer present Electronically Signed On 08-10-2025 23:57:01 BUSINESS OFFICE TECHNICIAN by Alfredo Porter M.D. [email or web address]
[2025-08-09 23:18] LABS: Troponin 5 2HR < 6.0 ng/L (0-15); Troponin 5 2HR Delta 0 ABS# (0-10)
[2025-08-10] VITALS (7 sets, daily range): BP systolic 100–123; BP diastolic 72–78; PULSE 86–106; RESP 16–22; TEMP 36.4–36.9; O2SAT 94–97; BMI 28.5
--- NOTE | 2025-08-10 07:00 | USCV_ITS ---
Alonso Ojeda Age: 39 Gender: M : 1985 Exam Date: 08/10/2025 14:05 Ordering Phys: Vickie Benz MD Technologist: [place] [facility] [place]: lung disease BP: 123 / 73 HR: 97 Rhythm: Sinus Technical Quality: Adequate MEASUREMENTS (Male / Female) Normal Values 2D ECHO LV Diastolic Diameter PLAX 4.0 cm 4.2 - 5.9 / 3.9 - 5.3 cm IVS Diastolic Thickness 1.0 cm 0.6 - 1.0 / 0.6 - 0.9 cm IVS Systolic Thickness 1.7 cm LVPW Diastolic Thickness 1.2 cm 0.6 - 1.0 / 0.6 - 0.9 cm LVPW Systolic Thickness 1.5 cm LVOT Diameter 2.0 cm LV Ejection Fraction 2D Teich 69.1 % LV Ejection Fraction MOD 4C 66.9 % LV Ejection Fraction MOD 2C 58.9 % LV Ejection Fraction 2C AL 59.6 % LA Diameter 2.6 cm LA Sys Volume AL 38.8 cm cubed LA Sys Volume Index AL 17.7 cm cubed/m squared Aorta at Sinotubular Diameter 2.8 cm IVC Diameter 1.6 cm M-MODE LA Ao Ratio MM 1.1 MV E Point Septal Separation 1.6 cm AV Cusp Separation MM 2.3 cm DOPPLER AV Peak Velocity 151.0 cm/s LVOT Peak Velocity 121.0 cm/s AV Area Cont Eq vti 2.8 cm squared AV Area Cont Eq pk 2.6 cm squared MV Area PHT 6.5 cm squared Mitral E to A Ratio 0.7 TV Peak Velocity 262.0 cm/s TR Peak Velocity 308.0 cm/s TR Peak Gradient 37.9 mmHg TV Peak E Velocity 104.0 cm/s PV Peak Velocity 104.0 cm/s FINDINGS Left Ventricle Normal left ventricular size, systolic function and wall thickness, with no regional wall motion abnormalities. Left ventricular ejection fraction is estimated at 60 %. Grade I/IV diastolic dysfunction (abnormal relaxation filling pattern), normal to mildly elevated filling pressures. Right Ventricle Normal right ventricular size and systolic function. Right Atrium Normal right atrial size. Left Atrium Normal left atrial size. IA Septum Normal appearance of the interatrial septum. Mitral Valve Normal mitral valve structure. No mitral valve stenosis or regurgitation. Aortic Valve Normal aortic valve structure. No aortic valve stenosis or regurgitation. Tricuspid Valve Normal tricuspid valve structure. No tricuspid valve stenosis or regurgitation. Normal pulmonary pressure. Pulmonic Valve Normal pulmonic valve structure. No pulmonic valve stenosis or regurgitation. Pericardium No pericardial effusion. Aorta Normal diameter of the aortic root and ascending thoracic aorta. IVC Normal IVC diameter. CONCLUSIONS Normal left ventricular size, systolic function and wall thickness, with no regional wall motion abnormalities. Left ventricular ejection fraction is estimated at 60 %. Grade I/IV diastolic dysfunction (abnormal relaxation filling pattern), normal to mildly elevated filling pressures. No significant valvular abnormalities. There is no pericardial effusion. Right atrial pressure is around 5 mm of mercury. Basilio Manning MD (Electronically Signed) Final Date: 11 August 2025 20:01 S
--- NOTE | 2025-08-10 07:03 | ECG_ITS ---
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 Interpretive Statements Lung unchanged pre/post procedure; Intraprocedure shortess of breath; Symptoms resoled by discharge PROCEDURE: At the baseline, the EKG revealed normal sinus rhythm with a normal ST Ts. The baseline heart was 92 bpm with a blood pressue of 105/82 mm of Hg Lexiscan was infused over a period of 20 seconds. A total of 0.4 milligrams of Lexiscan was infused. The stress phase was continued for a total of 5 minutes. Heart rate at the end of the stress phase was 94 bpm with a blood pressure 97/73 mm of Hg. The EKG at the peak infusion revealed no significant changes. Sestamibi was injected 20 seconds after the Lexiscan infusion. Heart rate at the end of the recovery phase was 91 bpm with a blood pressure of 100/75 mm of Hg. CONCLUSION: 1. No significant EKG changes with the LexiScan infusion 2. No LexiScan induced chest pain or cardiac arrhythmia 3. Normal blood pressure and heart rate response 4. Sestamibi/sestamibi perfusion scan pending; see separate report. Electronically Signed On 08-12-2025 20:22:55 RING CUTTER LATHE OPERATOR by Alfredo Porter M.D. [email or web address]
--- NOTE | 2025-08-10 07:03 | NMCV_ITS ---
NM josefina perf SPECT r/s* [id number] RustyAlonso Age: 39 Gender: M : 1985 Exam Date: 08/10/2025 08:09 Ordering Phys: Vickie Benz MD Technologist: CHERI Curry Exam Location: [facility] Indications: CP STRESS TEST Please see separate stress test report in [facility] for full findings IMAGE PROTOCOL Rest/Stress 1 Lexiscan Day Radiopharmaceutical Dose (mCi) Administration Site Administered by Rest: Tc-99m 10.8 IV CHERI Carlisle Sestamibi Stress:Tc-99m 32.7 IV CHERI Curry Sestamizoila Rest: 10-Aug-2025 60 Discovery 630 Stress: 10-Aug-2025 30 Discovery 630 0.4mg Lexiscan. Images obtained in supine and prone position. SPECT RESULTS Technical Quality: Good Raw Data Analysis: Normal Image Corrections: No attenuation or motion correction applied Summed Stress Score: 0 Summed Rest Score: 2 Summed Difference Score: 0 PERFUSION FINDINGS Fairly uniform myocardial tracer uptake.. No significant Perfusion abnormalities. FUNCTIONAL RESULTS (calculated via Gated SPECT) Stress Image LV EF (%): 79 Stress EDV (mL):78 TID: 0.89 Stress ESV (mL):16 FUNCTIONAL FINDINGS: Segmental wall motion analysis revealing no gross wall motion abnormalities IMPRESSIONS 1. Myocardial perfusion imaging revealing fairly uniform myocardial tracer uptake with no significant perfusion abnormalities. 2. Normal LV ejection fraction of 79% 3. LV wall motion analysis revealing no gross wall motion abnormalities. 4. Normal LV volume Low probability for coronary ischemia, based on the above findings Dr Alfredo Porter MD FACC (Electronically Signed) Final Date: 10 August 2025 12:32 S
--- NOTE | 2025-08-10 07:42 | P.HP_ITS ---
Providers/Chief Complaint 2 Admitting Physician: Vickie Benz MD Primary Care Provider: Reggie Webb MD Chief Complaint: CP, SOB History of Present Illness Alonso Ojeda is a 39 year old male with no significant medical history presented with chest pains. Patient seen and evaluated for left-sided chest pain. CTA of the chest abdomen and pelvics were done where unremarkable. Troponin were unremarkable. This patient is a chest pain rule out observation. I have placed patient on a stress test and n.p.o. follow through with stress test and if negative patient should be able to go home and seek a noncardiac chest pain in the hands of the primary care doctor Review of Systems 2 Narrative: System review open 10 organ reviewed we are significant for cardiovascular regarding chest pains. Patient does have history of sarcoid and asthma. Medications/Allergies Home Medications ?Medication ?Instructions ?Recorded ?Confirmed ?Last Taken ?Type pantoprazole 40 mg tablet,delayed See Rx Instructions .Route 06/03/24 05/10/25 Unknown Rx release .COMPLEX #180 tabs semaglutide 1 mg/dose (4 mg/3 mL) 1 mg (0.75 mL) SUBCU T Q7D #3 mL 11/08/24 05/10/25 Unknown Rx subcutaneous pen injector (Ozempic) albuterol sulfate 90 mcg/actuation 2 puff inhalation Q 4H PRN 11/11/24 05/10/25 Unknown Rx aerosol inhaler (Ventolin HFA) Shortness Of Breath #8. 5 grams prednisone 20 mg tablet 20 mg PO .COMPLEX #20 tabs 0 11/11/24 05/10/25 Unknown Rx diclofenac sodium 75 mg See Rx Instructions .Route 0 11/15/24 05/10/25 Unknown Rx tablet,delayed release .COMPLEX #60 tabs Allergies Allergy/AdvReac Type Severity Reaction Status Date / Time No Known Allergies Allergy Verified 08/09/25 20:16 PFSH Acute 2 PFSH: Medical History Essential (primary) hypertension Tobacco abuse counseling Sarcoidosis of lung GERD (gastroesophageal reflux disease) Bilateral pneumonia Tobacco use Drug-induced hyperglycemia Polyarthralgia Reactive depression (situational) Acute hyperventilation syndrome Surgical History History of lung biopsy H/O right knee surgery Family History Other Cancer Denies family history of Lung disease Social History Smoking and tobacco/nicotine status: tobacco/nicotine user, details unknown Quit status (tobacco/nicotine): has quit using Year quit tobacco: 2016 - 3PPD x 19 Years Alcohol intake: never Substance/Drug Use: never Lives independently: Yes Household members: spouse Marital status: Current occupational status: employed Do you think of yourself as: Straight/Heterosexual Current gender identity: Male Vitals/I&O/Wt Last Vital Signs Temp 97.5 F L 08/10/25 07:26 Pulse 92 08/10/25 07:26 Resp 19 H 08/10/25 07:26 BP 113/78 08/10/25 07:26 Pulse Ox 96 08/10/25 07:26 O2 Del Method Nasal Cannula 08/10/25 07:26 O2 Flow Rate 2 08/10/25 03:46 08/09/25 08/10/25 08/10/25 22:59 06:59 14:59 Intake Total 1030 / 1030 Balance 1030 / 1030 Weight last 48 hrs Weight 95.254 kg Weight 91.626 kg Weight 97.522 kg Physical Exam 2 Narrative: Generally patient is doing well denies complaints and no chest pain at the time of my evaluation. Patient understands n.p.o. after midnight and should be able to go for stress test today. And if negative patient should be able to go home. HEENT normocephalic atraumatic neck neck is supple cardiovascular heart rate is regular lungs are pretty much clear abdomen soft nontender nondistended unremarkable extremities are intact no edema has good pulses neurology has no focality lab studies lab studies reviewed and noted as well below. Data 08/09/25 20:10 08/09/25 20:10 A&P Assessment and plan 1. Asthma with COPD: 2. Chest pain of unknown etiology: 3. Weight gain: 4. New onset of headaches: 5. Controlled diabetes mellitus: 6. Diabetes type 2, uncontrolled: 7. Hyperlipemia, mixed: 8. Hypoglycemia: Plan: Atypical chest pain Admit to general medical floor with telemetry under observation - Patient made n.p.o. - Follow-up with echocardiogram - Follow-up with stress test and if negative patient should be able to go home and follow-up with causes of noncardiac chest pain such as sarcoid and asthma. Some of the medical problem that is chronic such as sarcoid/asthma continue with your home medication and following up with your primary care provider on these. These are not in exacerbation. PDMP PDMP Reviewed: Not Reviewed Attestations 2 Medical Necessity Statement*: Acute on 23-hour observation if patient rules out for an MRI should be able to go home. Coding Level of Care Code Acute Code for Chg Fwd Diagnoses Asthma with COPD J44.89 Chest pain of unknown etiology R07.9 Weight gain R63.5 New onset of headaches R51.9 Controlled diabetes mellitus E11.9 Diabetes type 2, uncontrolled Hyperlipemia, mixed E78.2 Hypoglycemia E16.2 Time Spent (min) 60
--- OUTSIDE RECORDS SUMMARY | 2025-08-10 08:11 | XMS_ITS | Encounter Summary ---
Author Organization [facility] Address 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 Gender Identity Not on file Sexual Orientation Not on file documented as of this encounter Plan of Treatment Upcoming Encounters Date Type Department Care Team (Late st Contact Info) Description 10/25/2025 2:00 PM DISTRICT BRANCH MANAGER Office Visit [facility] Pulmonology [address] [place] [address] Arcadio Rodriguez MD [address] [place] [address] 02/02/2026 1:00 PM CDT Office Visit [facility] Rheumatology- Son[address] Pardo [address] [place] [address] Angie Sanchez MD [address] [place] [address] documented as of this encounter Visit Diagnoses Not on filedocumented in this encounter
--- OUTSIDE RECORDS SUMMARY | 2025-08-10 08:11 | XMS_ITS | Clinical Summary ---
Author Organization [facility] Address [address] [place] [address] Care Team Providers Care Photo Graphics Librarian Name Role Phone Unavailable Primary Care Provider [...] Description 08/04/2025 1:20 PM CDT Office Visit [facility] [address] [place] [address] Angie Sanchez MD Sarcoidosis (Primary Dx); Skin lesions; High risk medication use 08/03/2025 External Device Data STL ABSTRACTION Provider, Abstract 08/03/2025 External Device Data STL ABSTRACTION Provider, Abstract 07/12/2025 External Device Data STL ABSTRACTION Provider, Abstract 06/28/2025 External Device Data STL ABSTRACTION Provider, Abstract 06/21/2025 External Device Data STL ABSTRACTION Provider, Abstract 06/09/2025 Refill [facility] [address] [place] [id number] Angie Sanchez MD 06/07/2025 External Device Data [...] on file 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 [address] [place] [address] Arcadio Rodriguez MD [address] [place] [address] 02/02/2026 1:00 PM CDT Office Visit [facility]- Sonido Thorpe [address] [place] [address] Angie Sanchez MD [address] [place] [address] Health Maintenance Due Date Last Done Comments Pre-Diabetes and Diabetes Screening 1983 DTAP/TDAP/TD VACCINES (1 - Tdap) 2002 HEPATITIS B VACCINES (1 of 3 - 19+ 3-dose series) 2002 HPV VACCINES (1 - 3-dose SCDM series) 2010 INFLUENZA VACCINE (#1) 2025 10/06/2014 COVID-19 Vaccine ( season) 2025, 04/23/[address] [place] [address] [place] [id number] Member Subscriber Plan / Payer (Ef fective 2024-Present) Name:Alonso Ojead Relation to Subscriber:Self Name:Alonso Ojeda Payer ID:[id number] (NAIC) Type:TARA Address: [facility] [id number] [place] [id number]
--- OUTSIDE RECORDS SUMMARY | 2025-08-10 08:11 | XMS_ITS | Encounter Summary ---
Author Organization [facility] Address 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 Gender Identity Not on file Sexual Orientation Not on file documented as of this encounter Plan of Treatment Upcoming Encounters Date Type Department Care Team (Late st Contact Info) Description 10/25/2025 2:00 PM RESIN REMOVER Office Visit [facility] [address] [place] [address] Arcadio Rodriguez MD [address] [place] [address] 02/02/2026 1:00 PM CDT Office Visit [facility] Rheumatology- Sonido P[facility] [place] [address] [place] [address] Angie Sanchez MD [address] [place] [address] documented as of this encounter Visit Diagnoses Not on filedocumented in this encounter
--- NOTE | 2025-08-10 08:25 | PC.NURSE ---
Patient to stress test at 0821
--- NOTE | 2025-08-10 09:09 | PC.PHAR ---
Med list provided by spouse-written on the board in pts' room before left.
--- NOTE | 2025-08-10 09:33 | PC.CHAP ---
Pastoral Care Encounter/Spiritual Assessment Type of Contact [] Declined desk manager visit [] Patient/Family/Request visit [] Outpatient visit [] Follow-up visit [] Physician referral [] Code/Alert [] Routine visit [] Staff referral [] Actively dying [] Patient sleeping [] Family support [] [x] Out of room [] Palliative care [] [] Receiving care in room [] Pre-surgical visit [] Trauma [] Long length of stay [] ICU visit [] Other: Relational/Emotional Strength [] Patient feels connected with others/family/visitors/staff [] Distress [] Loneliness/isolation [] Abandonment Spirituality of Patient [] Person of Lizzie [] Attends Anabaptism of their Lizzie [] Believes in Prayer [] Reads Bible or Nondenominational materials [] There are Spiritual issues to be addressed Globe Changer Interventions [] Prayer [] Active listening [] Non-anxious presence [] Spiritual/emotional support [] Crisis/trauma care [] Spiritual counseling [] Bereavement support [] Provided bereavement packet [] Provided Bible/devotional materials [] Provided toy/stuffed animal, coloring book to patient or family member [] Provided Communion [] Anointing/[place] [] Salvation [] Completed spiritual assessment [] Other: Impact on Illness or Injury [] Angry [] Fearful [] Anxious [] Often cries [] Exhaustion [] Unable to work [] Unable to attend synagogue [] Unable to walk/stand [] Unable to read [] Unable to drive [] Unable to eat/drink [] Unable to sleep [] Unable to be with family [] Patient intubated [] Other: Summary Time spent with patient
[2025-08-10 10:04] LABS: Hematocrit 43.3 % (37-53); Hemoglobin 14.70 g/dL (11.27-16.99); Mean Corpuscular HGB Conc 33.9 g/dL (30-55); Mean Corpuscular Hemoglobin 26.7 pg (27-33); Mean Corpuscular Volume 78.6 fl (82-101); Nucleated Red Blood Cells % 0 %; Platelet Count 214 10^3/cmm (157-399); Red Blood Count 5.51 10^6/uL (3.85-5.65); White Blood Count 5.42 10^3/uL (3.29-11.43)
[2025-08-10 10:24] LABS: Estmated Average Glucose 128; Hemoglobin A1C 6.1 % (4.0-6.0)
[2025-08-10 10:37] LABS: Procalcitonin 0.08 ng/mL (0-0.5); Thyroid Stimulating Hormone 0.20 uIU/mL (0.27-4.20); Vitamin B12 258 pg/mL (232-1245)
[2025-08-10 10:48] LABS: Alanine Aminotransferase 6 U/L (0-41); Albumin Level 4.2 g/dL (3.5-5.2); Alkaline Phosphatase 119 U/L (40-130); Anion Gap 19.2 (5-19); Aspartate Amino Transferase 12 U/L (0-40); Blood Urea Nitrogen 8 mg/dL (6-20); Calcium 9.2 mg/dL (8.5-10.5); Carbon Dioxide 21 mmol/L (22-29); Chloride 103 mmol/L (98-107); Creatinine Clr Calc Pharmacy 129.3441; Globulin 3.6 g/dL (1.3-4.6); Glucose 147 mg/dL (65-115); Iron 51 ug/dL (59-158); Osmolality Calculated 289 mOsm/kg (285-295); Potassium 4.2 mmol/L (3.5-5.1); Sodium 139 mmol/L (136-145); Total Iron Binding Capacity 171 mcg/dl; Total Protein 7.8 g/dL (6.6-8.7); Unsaturated Iron Binding 120 ug/dL (112-347)
[2025-08-10 12:09] LABS: Free T4 Free Thyroxine 1.23 ng/dL (0.82-1.77)
--- NOTE | 2025-08-10 12:48 | P.DS_ITS ---
Discharge Providers Date of Admission: 08/09/25 22:32 Date of Discharge: August 10, 2025 Attending Provider at Admission: Vickie Benz MD Attending Provider at Discharge: Genaro Hughes MD Primary Care Provider: Reggie Webb MD Diagnoses at Discharge Discharge Diagnosis 1. Asthma with COPD: 2. Chest pain of unknown etiology: 3. Weight gain: 4. New onset of headaches: 5. Controlled type 2 diabetes mellitus without complication, without long-term current use of insulin: 6. Uncontrolled type 2 diabetes mellitus with hyperglycemia: 7. Hyperlipemia, mixed: 8. Hypoglycemia: Reason for Visit Reason for Visit: CP, SOB Brief History: Per HPI Alonso Ojeda is a 39 year old male with no significant medical history presented with chest pains. Patient seen and evaluated for left-sided chest pain. CTA of the chest abdomen and pelvics were done where unremarkable. Troponin were unremarkable. This patient is a chest pain rule out observation. I have placed patient on a stress test and n.p.o. follow through with stress test and if negative patient should be able to go home and seek a noncardiac chest pain in the hands of the primary care doctor Hospital Course Hospital Course Patient was admitted to the hospital further evaluation and management of acute chest pain. PE, aortic dissection was ruled out with CTA. Lexiscan stress test was done which was negative for acute ischemia. He has been discharged in hemodynamically stable condition on 5 days of oral prednisone, continuation of inhalation treatment with advised to follow-up with a primary care provider within next 1 week. Physical Exam Narrative: Generally patient is doing well denies complaints and no chest pain at the time of my evaluation. Patient understands n.p.o. after midnight and should be able to go for stress test today. And if negative patient should be able to go home. HEENT normocephalic atraumatic neck neck is supple cardiovascular heart rate is regular lungs are pretty much clear abdomen soft nontender nondistended unremarkable extremities are intact no edema has good pulses neurology has no focality lab studies lab studies reviewed and noted as well below. Discharge Data Studies Completed and Pending Completed Studies During Hospitalization Category Date Time Status CT ang ches abdpel [id number] Stat Cat Scan 08/09/25 20:25 Completed Cardiac Stress Test MIBI [Sestamibi Stress Test Request Exams 08/10/25 07:03 Draft ] Routine XR chest 1V portable [id number] Stat Exams 08/09/25 20:00 Completed NM josefina perf SPECT r/s* [id number] Routine Nuc Med 08/10/25 07:03 Completed Pending at discharge Category Date Time Status Complete Blood Count w/Auto AM LABS Lab 08/11/25 04:00 Ordered Comprehensive Metabolic Panel AM LABS Lab 08/11/25 04:00 Ordered Folate Level AM LABS Lab 08/11/25 04:00 Ordered Lipid Profile w/VLDL Routine Lab 08/11/25 04:00 Ordered MAG [Magnesium] AM LABS Lab 08/11/25 04:00 Ordered MAG [Magnesium] AM LABS Lab 08/12/25 04:00 Ordered MAG [Magnesium] AM LABS Lab 08/13/25 04:00 Ordered Urinalysis Routine Lab 08/10/25 09:19 Uncollected CV. 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 Chest/Abdomen/Pelvis CTA 08/09/25 20:25 IMPRESSION: No findings present to suggest aneurysm or dissection No acute or chronic pulmonary embolism Findings of retractile changes in the central peribronchovascular interstitial the upper lower lobes with reticulonodular opacities differential to consider would include the possibility of sarcoidosis or silicosis further workup recommended. Lexiscan stress test PERFUSION FINDINGS Fairly uniform myocardial tracer uptake.. No significant Perfusion abnormalities. FUNCTIONAL RESULTS (calculated via Gated SPECT) Stress Image LV EF (%): 79 Stress EDV (mL):78 TID: 0.89 Stress ESV (mL):16 FUNCTIONAL FINDINGS: Segmental wall motion analysis revealing no gross wall motion abnormalities IMPRESSIONS 1. Myocardial perfusion imaging revealing fairly uniform myocardial tracer uptake with no significant perfusion abnormalities. 2. Normal LV ejection fraction of 79% 3. LV wall motion analysis revealing no gross wall motion abnormalities. 4. Normal LV volume Low probability for coronary ischemia, based on the above findings Dr Alfredo Porter MD FAC (Electronically Signed) Final Date: 10 August 2025 12:32 Laboratory Results WBC 5.42 10^3/uL (3.29-11.43) 08/10/25 09:52 RBC 5.51 10^6/uL (3.85-5.65) 08/10/25 09:52 Hgb 14.70 g/dL (11.27-16.99) 08/10/25 09:52 Hct 43.3 % (37-53) 08/10/25 09:52 MCV 78.6 fl (82-101) L 08/10/25 09:52 MCH 26.7 pg (27-33) L 08/10/25 09:52 MCHC 33.9 g/dL (30-55) 08/10/25 09:52 RDW 13.2 % (12.1-15.1) 08/10/25 09:52 Plt Count 214 10^3/cmm (157-399) 08/10/25 09:52 MPV 8.2 fL (7.4-10.4) 08/10/25 09:52 Neut % (Auto) 86.8 % 08/10/25 09:52 Lymph % (Auto) 10.0 % 08/10/25 09:52 Addison % (Auto) 2.6 % 08/10/25 09:52 Eos % (Auto) 0.0 % 08/10/25 09:52 Baso % (Auto) 0.0 % 08/10/25 09:52 Neut # (Auto) 4.71 10^3/uL (1.8-7.7) 08/10/25 09:52 Lymph # (Auto) 0.5 10^3/uL (0.8-4.8) L 08/10/25 09:52 Addison # (Auto) 0.1 10^3/uL (0.2-0.9) L 08/10/25 09:52 Eos # (Auto) 0.0 10^3/uL (0.0-0.8) 08/10/25 09:52 Baso # (Auto) 0.0 10^3/uL (0.0-0.1) 08/10/25 09:52 Nucleated RBC % (auto) 0 % 08/10/25 09:52 Nucleated RBCs # 0.0 /100WBC 08/10/25 09:52 Sodium 139 mmol/L (136-145) 08/10/25 09:52 Potassium 4.2 mmol/L (3.5-5.1) 08/10/25 09:52 Chloride 103 mmol/L (98-107) 08/10/25 09:52 Carbon Dioxide 21 mmol/L (22-29) L 08/10/25 09:52 Anion Gap 19.2 (5-19) H 08/10/25 09:52 BUN 8 mg/dL (6-20) 08/10/25 09:52 Creatinine 0.9 mg/dL (0.7-1.2) 08/10/25 09:52 GFR Calculation 93.0 mL/min (90-130) 08/10/25 09:52 Glucose 147 mg/dL (65-115) H 08/10/25 09:52 Estimat Average Glucose 128 08/10/25 09:52 Hemoglobin A1c 6.1 % (4.0-6.0) H 08/10/25 09:52 Calculated Osmolality 289 mOsm/kg (285-295) 08/10/25 09:52 Calcium 9.2 mg/dL (8.5-10.5) 08/10/25 09:52 Iron 51 ug/dL (59-158) L 08/10/25 09:52 TIBC 171 mcg/dl 08/10/25 09:52 % Saturation 29.8 % (20-50) 08/10/25 09:52 Unsat Iron Binding 120 ug/dL (112-347) 08/10/25 09:52 Total Bilirubin 0.3 mg/dL (0.15-1.2) 08/10/25 09:52 AST 12 U/L (0-40) 08/10/25 09:52 ALT 6 U/L (0-41) 08/10/25 09:52 Alkaline Phosphatase 119 U/L (40-130) 08/10/25 09:52 Troponin T Baseline < 6 ng/L (0-15) 08/09/25 20:10 Troponin T 120 Minute < 6.0 ng/L (0-15) 08/09/25 22:45 Delta Troponin T 0 ABS# (0-10) 08/09/25 22:45 NT-Pro-B Natriuret Pep < 36 pg/mL (0-125) 08/09/25 20:10 Total Protein 7.8 g/dL (6.6-8.7) 08/10/25 09:52 Albumin 4.2 g/dL (3.5-5.2) 08/10/25 09:52 Globulin 3.6 g/dL (1.3-4.6) 08/10/25 09:52 Vitamin B12 258 pg/mL (232-1245) 08/10/25 09:52 Procalcitonin 0.08 ng/mL (0-0.5) 08/10/25 09:52 TSH 0.20 uIU/mL (0.27-4.20) L 08/10/25 09:52 Free T4 1.23 ng/dL (0.82-1.77) 08/10/25 09:52 Free T3 2.7 PG/ML (2.0-4.4) 08/10/25 09:52 Influenza A (PCR) Negative (Negative) 08/09/25 20:31 Influenza Type B (PCR) Negative (Negative) 08/09/25 20:31 RSV (PCR) Negative (Negative) 08/09/25 20:31 SARS-CoV-2 (PCR) Negative (Negative) 08/09/25 20:31 Vitals Last Vital Signs Temp 98.5 F 08/10/25 11:34 Pulse 86 08/10/25 11:34 Resp 16 08/10/25 11:34 BP 123/72 08/10/25 11:34 Pulse Ox 96 08/10/25 11:34 O2 Del Method Nasal Cannula 08/10/25 07:26 O2 Flow Rate 2 08/10/25 07:50 Discharge Plan Discharge Patient Disposition: Home Condition: Stable Prescriptions: New aspirin 81 mg Tablet,Delayed Release (Dr/Ec) 81 mg PO DAILY Qty: 30 0RF prednisone 20 mg Tablet 40 mg PO DAILY 5 Days Qty: 10 0RF Continued celecoxib 200 mg capsule 200 mg PO BID budesonide-formoterol [Symbicort] 160-4.5 mcg/actuation HFA aerosol inhaler 2 puff INHALATION BID Humira(CF) Pen 40 mg/0.4 mL pen injector kit 40 mg SUBCUT .[id number] pantoprazole 40 mg tablet,delayed release (DR/EC) 40 mg PO BID Referrals: Reggie Webb MD [Primary Care Provider, [facility]] - 7-10 days Patient Instructions: Opioid Safety, Pain Management, Patient Portal & Sharon Instructions Activity Restrictions/Additional Instructions: Follow-up with your primary care provider within next 1 week. Please try to avoid smoking. Take prednisone 40 mg oral daily for next 5 days. Patient to be discharged after stress test result and echocardiogram is done. Discharge Attestations Time Spent in Discharge Care*: greater than 30 min Specific Discharge Activities: educating patient, discussing with pcp/other providers, discussing with rn case manager hospice/social workers/dc planners, documenting/other paperwork and evaluating patient/reviewing data Time Spent in Smoking Cessation: more than 10 minutes Status at Discharge: Cognitive status at discharge: cognitively intact , Behavioral status at discharge: cooperative , Functional status at discharge: independent ambulation , Overall status at discharge: patient is back to [facility] Quality Metrics Clinical Quality Measures [ No reported AMI, CVA or VTE this stay] Coding Level of Care Code 96120 Total time (in minutes) for Discharge: 65 Diagnoses Asthma with COPD J44.89 Chest pain of unknown etiology R07.9 Weight gain R63.5 New onset of headaches R51.9 Controlled type 2 diabetes mellitus without complication, without long-term current use of insulin E11.9 Uncontrolled type 2 diabetes mellitus with hyperglycemia E11.65 Glycemic state: with hyperglycemia Hyperlipemia, mixed E78.2 Hypoglycemia E16.2
[2025-08-10 14:40] LABS: Glucose Urine UA Negative (Normal); Nitrate Urine Negative (Negative); Specific Gravity, Urine 1.020 (1.005-1.030)
[2025-08-10 14:45] LABS: Add Urine Microscopic? YES
--- NOTE | 2025-08-10 15:36 | PC.NURSE ---
Discussed discharge follow up appointment, new medications and continued medications with patient. All questions answered for patient. Patient want to ambulate to the elevator to meet spouse down stairs in Oncology.
== END 2025-08-10 15:18 | disposition home or self-care (01) ==
LOC: ER 22:36 → MEDSURG 23:57
PROVIDERS: Admitting Provider Internal Medicine; Emergency Provider Emergency Medicine; PCP Family Medicine; Visit Provider Student in an Organized Health Care Education/Training Program
DX: R07.9 Chest pain, unspecified (principal); J44.89 Other specified chronic obstructive pulmonary disease; R63.5 Abnormal weight gain; Z68.28 Body mass index [BMI] 28.0-28.9, adult; R51.9 Headache, unspecified; E11.9 Type 2 diabetes mellitus without complications; E11.65 Type 2 diabetes mellitus with hyperglycemia; E78.2 Mixed hyperlipidemia; E16.2 Hypoglycemia, unspecified; K21.9 Gastro-esophageal reflux disease without esophagitis; F17.200 Nicotine dependence, unspecified, uncomplicated; F32.A Depression, unspecified
CPT/HCPCS: 36415; 71045; 71275; 74174; 78452; 80048; 80053; 81001; 82607; 83036; 83540; 83550; 83880; 84145; 84439; 84443; 84481; 84484; 85025; 87637; 93005; 93017; 93306; 94640; 96374; 96375; 99285; A9500; G0378; J1100; J1171; J2405; J2785; J7030; J7512; J9999